=== PATIENT | female | born 2000 | race Caucasian/White ===

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

== ENCOUNTER 2022-08-16 11:36 | Outpatient (CLI) | payer BC, SELFPAY ==
[2022-08-16 12:13] LABS: Hematocrit 37.1 % (37.0-47.0); Hemoglobin 11.6 g/dL (12.0-15.0); Mean Corpuscular HGB Conc 31.3 g/dl (32-36); Mean Corpuscular Hemoglobin 27.2 pg (26-34); Mean Corpuscular Volume 87.1 fl (80-100); Mean Platelet Volume 9.4 fl (7.4-10.4); Platelet Count Result 276 k/mm3 (150-375); Red Blood Count 4.26 M/mm3 (4.2-5.4); Red Cell Distribution Width 15.4 % (11.5-14.5)
[2022-08-16 12:23] LABS: Alanine Aminotransferase 36 U/L (6-35); Albumin Level 4.1 g/dL (3.5-5.1); Alkaline Phosphatase 136 U/L (38-126); Anion Gap 4 mmol/L (8-16); Aspartate Amino Transferase 36 U/L (14-36); Bilirubin,Total 0.4 mg/dL (0.2-1.3); Blood Urea Nitrogen 8 mg/dL (7-17); CRP < 0.5 mg/dL (<1.0); Calcium 8.8 mg/dL (8.4-10.2); Carbon Dioxide 26 mmol/L (22-30); Chloride 107 mmol/L (98-107); Estimated Glomerular Filt Rate > 60; Glucose 87 mg/dL (65-110); Potassium 4.3 mmol/L (3.4-5.0); Sodium 137 mmol/L (137-145)
[2022-08-16 16:26] LABS: Erythrocyte Sedimentation Rate 13 mm/hr (0-20)
== END 2022-08-16 11:37 | disposition home or self-care (01) ==
PROVIDERS: PCP Family Medicine; Visit Provider Nurse Practitioner Family
DX: R10.9 Unspecified abdominal pain (principal); R11.2 Nausea with vomiting, unspecified; R19.7 Diarrhea, unspecified
CPT/HCPCS: 36415; 80053; 85027; 85652; 86140

== ENCOUNTER 2022-09-15 00:23 | Day surgery (SDC) | payer BC, SELFPAY ==
[2022-09-06 14:24] VITALS: BMI 20.1
--- NOTE | 2022-09-13 07:54 | PM.IMHP ---
H&P: HPI History of Present Illness Date/Time: 09/13/22 07:54 Chief Complaint: Pelvic pain refractory to medical therapy and hymeneal tag Narrative: This 22 female 0 be for laparoscopy removal of hymeneal tag. She has had an ultrasound which was unhelpful. There was some free fluid. She has family history of endometriosis. She has tried oral contraceptives in has been unsuccessful with this. In light of her continued pain despite medical therapy she is admitted for diagnostic laparoscopy. She also has a piece of hymen that hangs out the vagina and would like to have that removed she is having discomfort with intercourse risks and benefits of all these procedures were reviewed including not exclusive of , aspiration pneumonia, bleeding, transfusion, perforation injury to bowel, bladder, ureters, or other internal organs with need for open laparotomy. She received the [employer] handout entitled laparoscopy. She had all questions answered. She asked to proceed PMFSH Past Medical History Medical History Abdominal pain Acute pain of both ears Acute tonsillitis Anxiety Asthma Chronic tonsillitis Depression GERD (gastroesophageal reflux disease) Headache Irritable bowel syndrome with diarrhea Nausea and vomiting Pharyngitis Family History Family History Other Diabetes mellitus Family history of arthritis Family history of cardiovascular disease Family history of malignant neoplasm Social History Social History Smoking status: Never smoker Second hand tobacco smoke exposure: Yes ([employer]) Alcohol intake: current Substance use: current Substance use type: marijuana Living arrangements: with family Occupation/Education: occupation Gender identity (if verbalized by the patient): Female Sexual Orientation (if Verbalized by the Patient): Straight or Heterosexual Spiritual care concerns: No Meds Home Medications and Allergies Home Medications Medication Instructions Recorded Confirmed Type No Home Medications 09/06/22 09/06/22 History Allergies Allergy/AdvReac Type Severity Reaction Status Date / Time No Known Allergies Allergy Verified 08/03/22 14:55 Exam Const: General: cooperative, healthy appearing, comfortable, well groomed and average body habitus Orientation/consciousness: oriented to person, oriented to place and oriented to time HENMT: Head: normal to inspection Resp: Effort & Inspection: normal respiratory effort Cardio: Rate: regular rate Rhythm: regular rhythm Heart sounds: S1 normal heart sound present and S2 normal heart sound present GI: Inspection: normal to inspection : External Female Exam: normal external appearance Speculum Exam - Vagina: normal appearance of the vagina Speculum Exam - Cervix: Cervical os closed Bimanual exam- vagina & uterus: uterine size normal Bimanual Exam- Adnexa, other: tender bilaterally Assessment and Plan Assessment and plan (1) Hymenal remnant: Code(s): N89.8 - Other specified noninflammatory disorders of vagina Status: Acute (2) Pelvic pain: Code(s): R10.2 - Pelvic and perineal pain Status: Acute Plan Laparoscopy with partial hymenectomy
[2022-09-15] VITALS (8 sets, daily range): BP systolic 98–111; BP diastolic 60–69; PULSE 62–110; RESP 12–20; TEMP 36.1–36.6; O2SAT 100
--- NOTE | 2022-09-15 07:09 | WPDHPUPDATE1 ---
History and Physical Update Update Date/Time: 09/15/22 07:09 History and Physical has been reviewed, including an updated exam of the patient. There are NO changes in the patient's condition. Risks, benefits, and alternatives have been discussed and questions answered. Patient agrees to proceed with procedure.
--- NOTE | 2022-09-15 13:58 | WPDANESEPPF ---
Anes - Initial Pre Proc Eval Procedure: Operation Date: 09/15/22 15:30 Proposed Procedures p Laparoscopy, Partial Hymenectomy - Kishor Duarte MD Date/Time: 09/15/22 13:58 Surgeon: Kishor Duarte MD Pre Op Diagnosis: pain, excessive hymen tissue Patient Data Age: 22 Gender: F Height: 1.57 m Weight: 50 kg Allergies Allergy/AdvReac Type Severity Reaction Status Date / Time No Known Allergies Allergy Verified 08/03/22 14:55 Home Medications Medication Instructions Recorded Confirmed Type hydrocodone 5 mg-acetaminophen 325 1 tablet PO Q4H PRN pain #20 tabs 09/15/22 Rx mg tablet Patient hx anesthesia problems: none Family hx anesthesia problems: none Results Review: All pre-operative results and documents have been reviewed as part of the pre-operative evaluation. [facility] Past Medical History Medical History Abdominal pain Acute pain of both ears Acute tonsillitis Anxiety Asthma Chronic tonsillitis Depression GERD (gastroesophageal reflux disease) Headache Irritable bowel syndrome with diarrhea Nausea and vomiting Pharyngitis Family History Family History Other Diabetes mellitus Family history of arthritis Family history of cardiovascular disease Family history of malignant neoplasm Social History Social History Smoking status: Never smoker Second hand tobacco smoke exposure: Yes ([employer]) Alcohol intake: current Substance use: current Substance use type: marijuana Living arrangements: with family Occupation/Education: occupation Gender identity (if verbalized by the patient): Female Sexual Orientation (if Verbalized by the Patient): Straight or Heterosexual Spiritual care concerns: No Anes - Eval Final PreProcedure Day of Procedure 09/15/22 13:58 Patient weight: normal Heart: regular rate and rhythm Lungs: decreased breath sounds Airway: Mallampati scale Neurological: alert and oriented Last oral intake: >/= 8 hours ASA classification: III Emergent: no Anesthetic plan: proceed Anesthesia type and monitoring: general ETT and standard monitoring Results Review: All pre-operative results and documents have been reviewed as part of the pre-operative evaluation. Informed Consent: The patient's anesthetic plan and its attendant risks and benefits were discussed with the patient/family/POA. Questions were solicited and answers provided to the satisfaction of the patient/family/POA.
[2022-09-15] MEDS: ACETAMINOPHEN 500 MG TABLET 1000 MG PO (14:06)
[2022-09-15] MEDS: SCOPOLAMINE 1.5 MG PATCH TRANSDERM (14:12)
[2022-09-15] MEDS: LACTATED RINGERS 1,000 ML 30 ML IV CONT (14:16)
[2022-09-15] MEDS: KETOROLAC 15 MG/ML VIAL (*BKC) IV PUSH (14:20)
--- NOTE | 2022-09-15 15:10 | P.OP_ITS ---
Procedure Note - Detailed Date of Procedure 09/15/22 Pre-op Diagnosis pain, excessive hymen tissue Post-op Diagnosis Other (endometriosis) Procedure Performed Laparoscopic destruction of endometriosis / excision of excess hymeneal tissue Surgeon Kishor Duarte MD Anesthesia General Indications a 22-year-old female with severe pelvic pain excess hymeneal tissue Findings abdomen was excessively over abundant. Areas of powder burn and blistered endometriosis along each uterosacral ligament. Normal-appearing ovaries tubes and uterus. [id number] of serosanguineous fluid was seen cul-de-sac. The appendix and gallbladder and liver edge all appeared within normal limits Description of Procedure patient was prepped draped in sterile fashion placed in the dorsal lithotomy position. Under excellent general trach anesthesia weighted speculum placed in posterior fornix vagina. Anterior lip of the cervix grasped with single-tooth tenaculum. The Brock's cannula inserted the cervix and attached to the single- tooth to be used later for uterine manipulation. An infraumbilical incision made the Veress needle passed in the abdomen. Abdomen filled with CO2 gas [id number]. The 5mm trocar advanced under direct visualization assuring no injury with the Optiview. Patient placed in tele Trendelenburg and a suprapubic incision made. The 5mm trocar advanced under direct visualization assuring no. Injury. [id number] of serosanguineous fluid was seen in the cul-de-sac and this was suctioned and removed. Irrigation undertaken until clear. Areas of endometriosis were photo documented and then point cauterized at 35 w per 2nd with monopolar cautery. No other abnormalities were seen. Visualization of the appendix gallbladder and liver edge were undertaken in photo documentation u ndertaken of the lower site removed. The gas removed from the abdomen. The upper site removed. The incisions closed with 4 Monocryl and glue. Attention was turned to the partial hymenectomy. Marked amount of hymeneal tissue was seen extruding through the vagina. Using cautery this was sharply dissected and removed bilaterally and circumferentially. These were then closed with running 3-0 Vicryl from superior to inferior portion. The tissue was sent for pathology. Blood loss for the entire procedure was deemed [id number]. All sponge, needle, instrument counts were correct. Patient went to recovery in satisfactory condition Estimated Blood Loss 5 Drains No Packing No Pathology Yes Complications No immediate complications Condition Stable Disposition PACU
[2022-09-15] MEDS: fentaNYL CITRATE INJ (*CRX) 100 MCG/2 ML VIAL 25 MCG IV PUSH ×5 (15:38→16:33)
[2022-09-15] MEDS: ONDANSETRON INJ 4 MG/2 ML VIAL IV PUSH (16:27)
[2022-09-15] MEDS: oxyCODONE HCL (*CRX) 5 MG TAB IR PO (16:28)
--- NOTE | 2022-09-15 17:21 | SUR.PHASEII ---
PHASE 1 CHARTRING AT 1556, 1626, 1655 ARE FOR PHASE 2.
== END 2022-09-15 17:05 | disposition home or self-care (01) ==
PROVIDERS: PCP Family Medicine; Visit Provider Obstetrics & Gynecology
PROC: (CPT 49320; principal; 2022-09-15 15:30)
DX: Q52.4 Other congenital malformations of vagina (principal); N80.3C3 Endometriosis of bilateral uterosacral ligament(s), unspecified depth; F12.90 Cannabis use, unspecified, uncomplicated
CPT/HCPCS: 58662; 56700; 36415; 86850; 86900; 86901; 88304; A9270; J1100; J1885; J2250; J2405; J2704; J3010; J7030; J7120

== ENCOUNTER 2022-10-06 10:53 | Outpatient (CLI) | payer BC, SELFPAY ==
[2022-10-14 19:51] LABS: Calprotectin, Stool 89 mcg/g
== END 2022-10-06 10:54 | disposition home or self-care (01) ==
PROVIDERS: PCP Family Medicine; Visit Provider Nurse Practitioner Family
DX: R10.9 Unspecified abdominal pain (principal); R11.2 Nausea with vomiting, unspecified; R19.7 Diarrhea, unspecified
CPT/HCPCS: 83993

== ENCOUNTER 2022-10-23 11:05 | Emergency (ER) | payer BC, SELFPAY ==
--- NOTE | ~2022-10-23 | XR_ITS ---
EXAMINATION: XR chest 2V DATE: 10/23/2022 12:42 INDICATION: Productive cough. Shortness of breath. TECHNIQUE: Frontal and lateral views of the chest were obtained. COMPARISON: Chest 2 views 07/19/2004 FINDINGS: The chest demonstrates clear lungs without pneumonia, pleural effusion, or pneumothorax. Th e heart size is normal. IMPRESSION: 1. No acute cardiopulmonary disease. Reviewed, dictated and finalized at location A.
[2022-10-23 11:14] VITALS: BP 124/77; PULSE 81; RESP 20; TEMP 36.8; O2SAT 98
[2022-10-23 11:42] VITALS: O2SAT 100
[2022-10-23 12:45] VITALS: O2SAT 98
[2022-10-23 13:04] LABS: Basophils Absolute Auto 0.1 K/mm3 (0.0-0.1); Basophils Percent Auto 0.7 % (0.2-1.2); Eosinophils Absolute Auto 0.2 K/mm3 (0-0.3); Eosinophils Percent Auto 2.8 % (0-4.4); Hematocrit 41.6 % (37.0-47.0); Hemoglobin 13.4 g/dL (12.0-15.0); Immature Granulocyte Absolute 0.02 K/mm3 (0.00-0.031); Immature Granulocyte Percent A 0.3 % (0-0.5); Lymphocytes Absolute Auto 1.34 K/mm3 (0.9-3.2); Lymphocytes Percent Auto 18.8 % (18.3-44.2); Mean Corpuscular HGB Conc 32.2 g/dl (32-36); Mean Corpuscular Hemoglobin 26.7 pg (26-34); Mean Corpuscular Volume 82.9 fl (80-100); Mean Platelet Volume 9.5 fl (7.4-10.4); Monocytes Absolute Auto 0.6 K/mm3 (0.1-0.6); Monocytes Percent Auto 8.6 % (2.6-8.5); Neutrophils Absolute Auto 4.9 K/mm3 (1.3-6.7); Neutrophils Percent Auto 68.8 % (45.5-73.1); Platelet Count Result 322 k/mm3 (150-375); Red Blood Count 5.02 M/mm3 (4.2-5.4); Red Cell Distribution Width 14.6 % (11.5-14.5); White Blood Count 7.1 K/mm3 (4.5-10.0)
[2022-10-23 13:18] LABS: Anion Gap 11 mmol/L (8-16); Blood Urea Nitrogen 9 mg/dL (7-17); Calcium 9.7 mg/dL (8.4-10.2); Carbon Dioxide 24 mmol/L (22-30); Chloride 104 mmol/L (98-107); Estimated CRCL calculation 100 ml/min; Estimated Glomerular Filt Rate > 60; Glucose 104 mg/dL (65-110); Potassium 3.6 mmol/L (3.4-5.0); Sodium 139 mmol/L (137-145)
[2022-10-23 13:40] LABS: Appearance Urine Cloudy (Clear); Bacteria Urine Rare /hpf; Bilirubin Urine Negative (Negative); Blood Urine Trace (Negative); Color Urine Yellow (Yellow); Glucose Urine UA Negative (Negative); Ketones Urine Negative (Negative); Leukocyte Esterase Ur Trace LEU/UL (Negative); Need Manual Microscopic Reviewed; Nitrate Urine Negative (Negative); Non Pathogenic Casts 0-2; Protein Urine Trace mg/dL (Negative); Squamous Epithelial Cell Urine Moderate /hpf (Few); Urobilinogen Urine 0.2 mg/dL (<2.0)
--- NOTE | 2022-10-23 13:50 | ED.SOB ---
HPI - SOB/Dyspnea General Chief Complaint: Shortness of Breath/Dyspnea Stated Complaint: SOB Time Seen by Provider: 10/23/22 12:03 Source: patient Mode of arrival: ambulatory Limitations: no limitations History of Present Illness HPI Narrative: 22-year-old with a history of anxiety, exercise-induced asthma here with complaints of shortness of breath for past few days. She denies any fever or chills she states the cough at times is productive mostly mucoid in nature. She denies any chest pain MD elicited complaint: shortness of breath and cough Pertinent past history: asthma Timing: constant Severity: moderate Exacerbating factors: nothing Relieving factors: nothing Known history of: asthma Associated symptoms: denies other symptoms Related Data Home Medications Medication Instructions Recorded Confirmed etonogestrel 68 mg subdermal 1 implant subdermal ONCE 10/06/22 10/06/22 implant (Nexplanon) Allergies Allergy/AdvReac Type Severity Reaction Status Date / Time No Known Allergies Allergy Verified 10/23/22 11:43 Review of Systems Review of Systems: All systems reviewed & are unremarkable except as noted in HPI and below Constitutional: Constitutional: Reports no additional constitutional complaints Eyes: Eyes: Reports no additional eye complaints ENT: Reports system reviewed and no additional complaints, except as documented Cardiovascular: Cardiovascular: Reports no additional cardiovascular complaints Respiratory: Respiratory: Reports as per HPI Musculoskeletal: Musculoskeletal: Reports no additional musculoskeletal complaints Neurologic: Reports system reviewed and no additional complaints, except as documented Psychiatric: Psychiatric: Reports no additional psychiatric complaints Endocrine: Endocrine: Reports no additional endocrine complaints PMFSH Past Medical History Medical History Abdominal pain Acute pain of both ears Acute tonsillitis Anxiety Asthma Chronic tonsillitis Depression GERD (gastroesophageal reflux disease) Headache Irritable bowel syndrome with diarrhea Nausea and vomiting Pharyngitis Family History Family History Other Diabetes mellitus Family history of arthritis Family history of cardiovascular disease Family history of malignant neoplasm Social History Social History Smoking status: Never smoker Second hand tobacco smoke exposure: Yes ([employer]) Alcohol intake: current Substance use: current Substance use type: marijuana Living arrangements: with family Occupation/Education: occupation Gender identity (if verbalized by the patient): Female Sexual Orientation (if Verbalized by the Patient): Straight or Heterosexual Spiritual care concerns: No Exam Narrative: GENERAL: Well-appearing, well-nourished, and in no acute distress, anxious HEAD: Normocephalic, atraumatic. EYES: PERRLA and EOMI NECK: Supple. CHEST: Clear to auscultation. No respiratory distress. HEART: Regular rate and rhythm. No murmur heard. Normal peripheral pulses. ABDOMEN: Soft, nontender, nondistended, normal active bowel sounds. EXTREMITIES: Normal range of motion. No edema. SKIN: Warm, dry, no rash. NEURO: No focal deficits. Alert and oriented x3. PSYCH: Normal mood and affect. Course Course Emergency Course: Notified patient about her lab work, chest x-ray findings recommended to take steroids as prescribed. Vital Signs Vital signs: Vital Signs Temperature 36.8 C 10/23/22 11:14 Pulse Rate 81 10/23/22 11:14 Respiratory Rate 20 10/23/22 11:14 Blood Pressure 124/77 10/23/22 11:14 Pulse Oximetry 98 10/23/22 11:14 Oxygen Delivery Room Air 10/23/22 11:14 Temperature 36.8 C 10/23/22 11:14 Pulse Rate 78 10/23/22 14:03 Respiratory Rate 18 10/23/22 14:03 Bloo
[2022-10-23 14:03] VITALS: BP 116/74; PULSE 78; RESP 18; O2SAT 98
[2022-10-23 14:42] LABS: Add Urine Microscopic? YES
== END 2022-10-23 14:05 | disposition home or self-care (01) ==
PROVIDERS: Emergency Provider Family Medicine; PCP Family Medicine
DX: F12.90 Cannabis use, unspecified, uncomplicated (principal); J40 Bronchitis, not specified as acute or chronic
CPT/HCPCS: 36415; 71046; 80048; 81001; 81025; 85025; 87086; 87088; 99283

== ENCOUNTER 2022-12-01 14:07 | Outpatient (CLI) | payer BC, SELFPAY ==
[2022-12-01 14:58] LABS: D Dimer 0.38 ug/mL (<0.48)
== END 2022-12-01 14:08 | disposition home or self-care (01) ==
PROVIDERS: PCP Family Medicine; Visit Provider Physician Assistant
DX: R07.9 Chest pain, unspecified (principal); R06.02 Shortness of breath
CPT/HCPCS: 36415; 85380

== ENCOUNTER 2022-12-20 09:34 | Outpatient (CLI) | payer BC, SELFPAY ==
[2022-12-20 10:42] LABS: Beta HCG Quantitative < 2.39 mIU/ML
== END 2022-12-20 09:35 | disposition home or self-care (01) ==
PROVIDERS: PCP Family Medicine; Visit Provider Physician Assistant
DX: Z32.00 Encounter for pregnancy test, result unknown (principal)
CPT/HCPCS: 36415; 84702

== ENCOUNTER 2023-01-30 16:08 | Emergency (ER) | payer BC, SELFPAY ==
[2023-01-30 16:21] VITALS: BP 80/69; PULSE 96; RESP 16; TEMP 36.9; O2SAT 100
--- NOTE | 2023-01-30 16:23 | ED.GENADULT ---
HPI - General Adult General Chief complaint: Unspecified Stated complaint: n/v, cough, piercing may be infected Time Seen by Provider: 01/30/23 16:23 Source: patient Mode of arrival: ambulatory Limitations: no limitations History of Present Illness HPI narrative: Patient is a 22-year-old female that presents with multiple complaints. Patient for several weeks. Has been diagnosed with bronchitis in the past month and had Medrol Dosepak called into pharmacy today. Patient has not started. Patient also nausea and vomiting. Patient states and may be related to increased anxiety over not wanting to hospital. Patient admits to having PTSD, borderline personality disorder, anxiety and depression but is not currently taking any medication due to having workup for autism. Patient also reports history of GI disorders acid reflux and IBS. Patient also has mild piercing upper lip frenulum that has been pulled and is now very tender and red. Denies any bitter taste in mouth. Patient also states she may have UTI he may have concern for . States she took the test last month and was negative but it has been another month since staff menstrual cycle. Patient is very anxious and tearful. Related Data Allergies Allergy/AdvReac Type Severity Reaction Status Date / Time No Known Allergies Allergy Verified 01/30/23 16:43 Review of Systems Review of Systems: All systems reviewed & are unremarkable except as noted in HPI and below Constitutional: Constitutional: Denies body ache(s), Denies chills, Denies fatigue, Denies fever(s), Denies headache(s), Denies malaise and Denies weakness Eyes: Eyes: Denies blurry vision, Denies irritation and Denies loss of vision ENT: Denies otalgia, Denies headache(s), Denies nasal discharge, Denies sinus pain and Denies sore throat Cardiovascular: Cardiovascular: Denies chest pain, Denies irregular heart rhythm and Denies dyspnea Respiratory: Respiratory: Denies dyspnea Gastrointestinal: Gastrointestinal: Denies abdominal pain, Denies melena, Denies hematochezia, Denies diarrhea, Denies nausea and Denies vomiting Musculoskeletal: Musculoskeletal: Denies back pain, Denies myalgias and Denies arthralgias Integumentary/Breasts: Skin/Breast: Denies pruritus and Denies rash Neurologic: Denies headache(s), Denies loss of vision and Denies weakness Psychiatric: Psychiatric: Reports no additional psychiatric complaints Endocrine: Endocrine: Denies fatigue PMFSH Past Medical History Medical History Abdominal pain Acute pain of both ears Acute tonsillitis Anxiety Asthma Chronic tonsillitis Depression GERD (gastroesophageal reflux disease) Headache Irritable bowel syndrome with diarrhea Nausea and vomiting Pharyngitis Family History Family History Other Diabetes mellitus Family history of arthritis Family history of cardiovascular disease Family history of malignant neoplasm Social History Social History Smoking status: Never smoker Second hand tobacco smoke exposure: Yes ([employer]) Alcohol intake: current Substance use: current Substance use type: marijuana Living arrangements: with family Occupation/Education: occupation Gender identity (if verbalized by the patient): Female Sexual Orientation (if Verbalized by the Patient): Straight or Heterosexual Spiritual care concerns: No Comments At time of signature, agree with nursing past medical, surgical, social and family history. There is no relevant family history pertinent to the presenting complaint. Exam Const: General: cooperative, healthy appearing, comfortable, no acute distress and well nourished Nutritional Appearance: well nourished Orientation/consciousness: patient oriented x3 Limitations: no limitations HENMT: Head: normal to inspectio
[2023-01-30 17:25] VITALS: BP 108/87
== END 2023-01-30 17:26 | disposition home or self-care (01) ==
PROVIDERS: Emergency Provider Nurse Practitioner Family; PCP Family Medicine
DX: O21.9 Vomiting of pregnancy, unspecified (principal); O99.519 Diseases of the respiratory system complicating pregnancy, unspecified trimester; J45.909 Unspecified asthma, uncomplicated; O99.619 Diseases of the digestive system complicating pregnancy, unspecified trimester; K21.9 Gastro-esophageal reflux disease without esophagitis; O99.320 Drug use complicating pregnancy, unspecified trimester; F12.90 Cannabis use, unspecified, uncomplicated; Z3A.00 Weeks of gestation of pregnancy not specified
CPT/HCPCS: 81003; 81025; 99213; G0463

== ENCOUNTER 2023-01-31 14:13 | Outpatient (CLI) | payer BC, SELFPAY | END 2023-01-31 14:14 | disposition home or self-care (01) | LOC: ANHLAB 14:14 | PROVIDERS: PCP Family Medicine; Visit Provider Family Medicine | DX: N91.2 Amenorrhea, unspecified (principal) | CPT/HCPCS: 36415; 84702 ==

== ENCOUNTER 2023-02-12 11:40 | Outpatient (CLI) | payer BC, SELFPAY ==
[2023-02-12 12:37] LABS: Basophils Percent Auto 0.3 % (0.2-1.2); Eosinophils Percent Auto 0.3 % (0-4.4); Hematocrit 37.8 % (37.0-47.0); Hemoglobin 12.1 g/dL (12.0-15.0); Immature Granulocyte Absolute 0.02 K/mm3 (0.00-0.031); Immature Granulocyte Percent A 0.3 % (0-0.5); Lymphocytes Absolute Auto 1.47 K/mm3 (0.9-3.2); Lymphocytes Percent Auto 19.5 % (18.3-44.2); Mean Corpuscular Hemoglobin 27.6 pg (26-34); Mean Corpuscular Volume 86.3 fl (80-100); Mean Platelet Volume 10.5 fl (7.4-10.4); Monocytes Absolute Auto 0.6 K/mm3 (0.1-0.6); Monocytes Percent Auto 7.6 % (2.6-8.5); Neutrophils Absolute Auto 5.4 K/mm3 (1.3-6.7); Platelet Count Result 279 k/mm3 (150-375); Red Blood Count 4.38 M/mm3 (4.2-5.4); Red Cell Distribution Width 16.6 % (11.5-14.5); White Blood Count 7.5 K/mm3 (4.5-10.0)
[2023-02-12 13:22] LABS: Hepatitis B Surface Antigen Negative (Negative); Rubella IgG Antibody 56.2 IU/ML
[2023-02-12 13:56] LABS: HIV 1/2 Ab P24 Ag Result Negative (Negative)
[2023-02-12 14:19] LABS: Rapid Plasma Reagin Non-Reactive (NonReactive)
[2023-02-16 09:13] LABS: CMV IgG Antibody <0.60 U/mL (<0.60)
[2023-02-21 02:28] LABS: CF Result NEGATIVE (NEGATIVE); Ethnicity NG
[2023-02-23 01:10] LABS: SMA 2.0 RISK VARIANT NOT DETECTED
[2023-02-23 14:59] LABS: SMA Results Received Yes
== END 2023-02-12 11:41 | disposition home or self-care (01) ==
PROVIDERS: PCP Family Medicine; Visit Provider Obstetrics & Gynecology
DX: N94.89 Other specified conditions associated with female genital organs and menstrual cycle (principal)
CPT/HCPCS: 36415; 81220; 81329; 84702; 85025; 86592; 86644; 86703; 86747; 86762; 86787; 86900; 86901; 87086; 87340; G0432

== ENCOUNTER 2023-02-21 17:47 | Emergency (ER) | payer BC, SELFPAY ==
[2023-02-21] VITALS (12 sets, daily range): BP systolic 92–120; BP diastolic 48–79; PULSE 71–88; RESP 14–16; TEMP 36.6; O2SAT 98–100
[2023-02-21] MEDS: METOCLOPRAMIDE HCL INJ 10 MG/2 ML VIAL IV PUSH (19:31)
[2023-02-21 19:32] LABS: Basophils Percent Auto 0.1 % (0.2-1.2); Hematocrit 36.6 % (37.0-47.0); Hemoglobin 12.3 g/dL (12.0-15.0); Immature Granulocyte Percent A 0.7 % (0-0.5); Lymphocytes Absolute Auto 1.14 K/mm3 (0.9-3.2); Lymphocytes Percent Auto 7.7 % (18.3-44.2); Mean Corpuscular HGB Conc 33.6 g/dl (32-36); Mean Corpuscular Hemoglobin 28.1 pg (26-34); Mean Corpuscular Volume 83.8 fl (80-100); Mean Platelet Volume 9.9 fl (7.4-10.4); Monocytes Absolute Auto 0.7 K/mm3 (0.1-0.6); Monocytes Percent Auto 4.6 % (2.6-8.5); Neutrophils Absolute Auto 12.9 K/mm3 (1.3-6.7); Neutrophils Percent Auto 86.9 % (45.5-73.1); Platelet Count Result 326 k/mm3 (150-375); Red Blood Count 4.37 M/mm3 (4.2-5.4); Red Cell Distribution Width 16.2 % (11.5-14.5); White Blood Count 14.9 K/mm3 (4.5-10.0)
[2023-02-21] MEDS: diphenhydrAMINE HCl INJ 50 MG/ML VIAL 25 MG IV PUSH (19:32)
[2023-02-21] MEDS: LACTATED RINGERS 1,000 ML 999 ML IV CONT ×2 (19:32→22:04)
[2023-02-21 19:41] LABS: Alanine Aminotransferase 16 U/L (6-35); Albumin Level 4.9 g/dL (3.5-5.1); Alkaline Phosphatase 69 U/L (38-126); Anion Gap 16 mmol/L (8-16); Aspartate Amino Transferase 25 U/L (14-36); Bilirubin,Total 0.6 mg/dL (0.2-1.3); Blood Urea Nitrogen 12 mg/dL (7-17); Calcium 9.6 mg/dL (8.4-10.2); Carbon Dioxide 17 mmol/L (22-30); Chloride 102 mmol/L (98-107); Estimated CRCL calculation 118 ml/min; Estimated Glomerular Filt Rate > 60; Glucose 97 mg/dL (65-110); Lipase 69 U/L (23-300); Potassium 3.5 mmol/L (3.4-5.0); Sodium 135 mmol/L (137-145)
--- NOTE | 2023-02-21 19:57 | ED.NAVMDI ---
HPI - Nausea/Vomiting/Diarrhea General Chief complaint: Nausea/Vomiting/Diarrhea Stated complaint: n/v Time Seen by Provider: 02/21/23 19:02 History of Present Illness HPI Narrative: Patient who is 10 weeks confirmed IUP on ultrasound nausea and vomiting presents here with, she states she has not been able to keep anything down for the last 24 hours, she has been struggling with this throughout her whole and is already on Zofran and Diclegis without improvement. Related Data Allergies Allergy/AdvReac Type Severity Reaction Status Date / Time No Known Allergies Allergy Verified 02/06/23 09:53 Review of Systems Review of Systems: CONST: No fever. HEENT: No sore throat C/V: No chest pain RESP: No cough GI: Reports nausea, vomiting : No dysuria. M/S: No joint pain. SKIN: No rash. NEURO: [No headache or focal numbness or weakness] PSYCH: [No depression] [facility] Past Medical History Medical History (Updated 02/21/23 @ 22:37 by Cyn Castro MD) Abdominal pain Acute pain of both ears Acute tonsillitis Anxiety Asthma Borderline personality disorder Chronic tonsillitis Depression Encounter for screening colonoscopy for [id number] patient GERD (gastroesophageal reflux disease) Headache Irritable bowel syndrome with diarrhea Nausea and vomiting Normal endoscopy Pharyngitis PTSD (post-traumatic stress disorder) Surgical History Surgical History H/O laparoscopy Family History Family History Other Diabetes mellitus Family history of arthritis Family history of cardiovascular disease Family history of malignant neoplasm Social History Social History (Updated 02/06/23 @ 09:58 by Irma Rubio MA) Smoking status: Never smoker Second hand tobacco smoke exposure: Yes ([employer]ILY [employer]) Alcohol intake: never Substance use: current Substance use type: marijuana Lack of Transportation: No Lack of Food: Never True Current Housing: I Have Housing Concerned About Future Housing: No Difficulty Paying Gas/Electric Bills: No Difficulty Paying for Meds: No Currently Unemployed: No Education: High School Diploma/GED Living arrangements: with family Occupation/Education: occupation 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 EYES: EOMI, conjunctiva normal ENT: Hearing grossly intact LUNGS: Nonlabored breathing. HEART: [Regular rate and rhythm] ABD: [Soft], no focal tenderness EXT: Normal range of motion SKIN: [No rashes or lesions.] NEURO: [Alert and oriented x 3. No gross focal sensory or strength deficits.] PSYCH: Normal affect Course Vital Signs Vital signs: Vital Signs Temperature 97.9 F 02/21/23 17:47 Pulse Rate 71 02/21/23 17:47 Respiratory Rate 16 02/21/23 17:47 Blood Pressure 112/57 L 02/21/23 17:47 Pulse Oximetry 100 02/21/23 17:47 Temperature 97.9 F 02/21/23 17:47 Pulse Rate 74 02/21/23 21:02 Respiratory Rate 14 02/21/23 21:02 Blood Pressure 103/66 02/21/23 22:02 Pulse Oximetry 99 02/21/23 22:02 MDM - Nausea/Vomiting/Diarrhea MDM Narrative Medical decision making narrative: 22-year-old female at 10 weeks presenting with nausea and vomiting, she states she has not been able to keep anything down for 24 hours. She has tried Zofran, Diclegis, none of which are working. IV established, labs obtained, fluids and antiemetics administered. On reevaluation, she states she is feeling much better, nausea has improved. Lab
[2023-02-21 22:26] LABS: Appearance Urine Cloudy (Clear); Bacteria Urine Rare /hpf; Bilirubin Urine Negative (Negative); Blood Urine Negative (Negative); Color Urine Yellow (Yellow); Glucose Urine UA Negative (Negative); Hyaline Casts Urine Present /lpf; Ketones Urine 4+ mg/dL (Negative); Leukocyte Esterase Ur Trace LEU/UL (Negative); Nitrate Urine Negative (Negative); Non Pathogenic Casts 0-2; Protein Urine 1+ mg/dL (Negative); Specific Grav Ur 1.033 (1.001-1.035); Squamous Epithelial Cell Urine Many /hpf (Few); pH Urine 6.5 (5.0-9.0)
[2023-02-21 22:27] LABS: Add Urine Microscopic? YES
== END 2023-02-21 22:48 | disposition home or self-care (01) ==
PROVIDERS: Emergency Provider Emergency Medicine; PCP Family Medicine
DX: O21.9 Vomiting of pregnancy, unspecified (principal); O26.891 Other specified pregnancy related conditions, first trimester; R82.71 Bacteriuria; O99.511 Diseases of the respiratory system complicating pregnancy, first trimester; J45.909 Unspecified asthma, uncomplicated; O99.611 Diseases of the digestive system complicating pregnancy, first trimester; K21.9 Gastro-esophageal reflux disease without esophagitis; K58.0 Irritable bowel syndrome with diarrhea; Z77.22 Contact with and (suspected) exposure to environmental tobacco smoke (acute) (chronic); Z3A.10 10 weeks gestation of pregnancy
CPT/HCPCS: 36415; 80053; 81001; 83690; 85025; 87086; 87088; 96361; 96374; 96375; 99284; J1200; J2765; J7120

== ENCOUNTER 2023-04-07 11:33 | Outpatient (CLI) | payer BC, SELFPAY | END 2023-04-07 11:34 | disposition home or self-care (01) | LOC: ANHLAB 11:34 | PROVIDERS: PCP Family Medicine; Visit Provider Obstetrics & Gynecology | DX: K58.0 Irritable bowel syndrome with diarrhea (principal); R19.7 Diarrhea, unspecified | CPT/HCPCS: 87177; 87209 ==

== ENCOUNTER 2023-04-23 15:09 | Outpatient (CLI) | payer BC, SELFPAY | END 2023-04-23 15:10 | disposition home or self-care (01) | PROVIDERS: PCP Family Medicine; Visit Provider Obstetrics & Gynecology | DX: R30.9 Painful micturition, unspecified (principal) | CPT/HCPCS: 87086 ==

== ENCOUNTER 2023-06-05 15:11 | Outpatient (CLI) | payer BC, SELFPAY ==
--- NOTE | 2023-06-05 15:21 | ECG_ITS ---
Measurements Intervals Hanna Rate: 75 P: 24 MI: 119 QRS: 72 QRSD: 76 T: 12 QT: 376 QTc: 420 Interpretive Statements SINUS RHYTHM WITH SHORT MI INTERVAL BORDERLINE ST-T WAVE ABNORMALITY- INFERIOR LEADS BASELINE WANDER- I, II, V3 BORDERLINE ECG NO PREVIOUS ECG AVAILABLE FOR COMPARISON Electronically Signed On 06-05-2023 16:50:33 PPA TEACHER by Inder Ramos D.O.
== END 2023-06-05 15:12 | disposition home or self-care (01) ==
PROVIDERS: PCP Family Medicine; Visit Provider Obstetrics & Gynecology
DX: R00.0 Tachycardia, unspecified (principal); R94.31 Abnormal electrocardiogram [ECG] [EKG]
CPT/HCPCS: 93005

== ENCOUNTER 2023-07-03 15:15 | Outpatient (CLI) | payer BC, SELFPAY ==
[2023-07-03 17:06] LABS: Hematocrit 34.1 % (37.0-47.0); Mean Corpuscular HGB Conc 32.3 g/dl (32-36); Mean Corpuscular Hemoglobin 29.2 pg (26-34); Mean Corpuscular Volume 90.5 fl (80-100); Mean Platelet Volume 9.8 fl (7.4-10.4); Platelet Count Result 330 k/mm3 (150-375); Red Blood Count 3.77 M/mm3 (4.2-5.4); Red Cell Distribution Width 14.4 % (11.5-14.5); White Blood Count 11.5 K/mm3 (4.5-10.0)
[2023-07-03 17:21] LABS: Glucose 1 Hour PP 50gm Dose 112 mg/dL
[2023-07-03 18:06] LABS: HIV 1/2 Ab P24 Ag Result Negative (Negative)
== END 2023-07-03 15:16 | disposition home or self-care (01) ==
LOC: ANHLAB 15:16
PROVIDERS: PCP Family Medicine; Visit Provider Student in an Organized Health Care Education/Training Program
DX: Z34.90 Encounter for supervision of normal pregnancy, unspecified, unspecified trimester (principal); Z3A.00 Weeks of gestation of pregnancy not specified
CPT/HCPCS: 36415; 82947; 85027; 86703; G0432

== ENCOUNTER 2023-08-03 00:44 | Day surgery (SDC) | payer BC, MEDICAID, SELFPAY ==
[2023-08-02 11:41] VITALS: BMI 23.4
--- NOTE | 2023-08-02 11:48 | PC.NURSE ---
Report to the Outpatient Waiting Room, entrance under the green pavilion located off [facility], at time 1300 on date 08/03/23. Planned Procedure Time: 1500. Time changes happen often and if your time is changed the preop area will call you the afternoon before. - You and your visitor will be asked to self-screen and do not enter if you have any COVID symptoms. - A mask is optional within the hospital at this time. Patients may have clear liquids (water, carbonated beverages, clear teas, apple juice) until 3 hours prior to surgery with a maximum of 20 ounces. - No food from midnight until time of surgery Take the following medications with a SIP of water the morning of surgery: NONE DO NOT STOP ANY OF YOUR OTHER PRESCRIPTION MEDICATIONS PRIOR TO SURGERY ?EXCEPT THE FOLLOWING Medications to discontinue per physician: N/A Date to take last dose: N/A Please no make-up, nail khmer, hairspray, perfume, deodorant, or body powder the day of surgery. No jewelry (including any body piercings) or valuables the day of surgery, leave them at home. Please take a shower or bath the night before, or the morning of, surgery with an antibacterial soap. Wear comfortable, loose fitting clothing. - Jewelry must be removed prior to entering the operating room. Rings and piercings that are not removed may be cut off. - The hospital will not accept responsibility for valuables. - Please leave all valuables, including medications, at home the day of surgery. If you are going home after surgery, a licensed backhaul driver must drive you home. - NO public transportation without another adult if you receive anesthesia. - We recommend that an adult stay with you for 24 hours following discharge. - We also recommend that you do not drive, make important decision, drink alcoholic beverages, or take any drugs that were not prescribed by your health care provider for at least 24 hours after your discharge time. Follow any additional instructions given to you from your surgeon. If you or anyone in your household have experienced Covid symptoms in the past week, please notify your surgeon or the nurse liaison at the phone number below for possible testing. Telephone instructions given to PT - GOLDEN KHOURY and asked if any additional questions and then verbalized understanding. Patient advised to call surgeon office or pre surgery nurse liaison [phone] if any additional questions.
[2023-08-03] VITALS (15 sets, daily range): BP systolic 68–104; BP diastolic 46–71; PULSE 80–143; RESP 16–20; TEMP 36.3–36.8; O2SAT 97–100
--- NOTE | 2023-08-03 13:30 | WPDANESEPPF ---
Anes - Initial Pre Proc Eval Procedure: Operation Date: 08/03/23 15:00 Proposed Procedures p Rectal Exam Under Anesthesia, Excision Thrombosed External Hemorrhoid - Parmjit Toussaint DO Date/Time: 08/03/23 13:30 Surgeon: Parmjit Toussaint DO Pre Op Diagnosis: thrombosed external hemorrhoid, 33 weeks preg Patient Data Age: 23 Gender: F Height: 1.57 m Weight: 57.8 kg Allergies Allergy/AdvReac Type Severity Reaction Status Date / Time cephalexin AdvReac Severe Vomiting Verified 08/03/23 13:12 Home Medications Medication Instructions Recorded Confirmed Type vits no.126-ferrous fum 1 tablet PO HS 03/05/23 08/02/23 History 28 mg iron-folic acid 800 mcg tablet (Classic ) Patient hx anesthesia problems: none Family hx anesthesia problems: none Results Review: All pre-operative results and documents have been reviewed as part of the pre-operative evaluation. [facility] Past Medical History Medical History Abdominal pain Acute pain of both ears Acute tonsillitis Anxiety Asthma Borderline personality disorder Chronic tonsillitis Depression Encounter for screening colonoscopy for [id number] patient GERD (gastroesophageal reflux disease) Headache Irritable bowel syndrome with diarrhea Nausea and vomiting Normal endoscopy Pharyngitis PTSD (post-traumatic stress disorder) Vaginal discharge Surgical History Surgical History H/O laparoscopy Family History Family History Other Diabetes mellitus Family history of arthritis Family history of cardiovascular disease Family history of malignant neoplasm Social History Social History Smoking status: Never smoker Second hand tobacco smoke exposure: Yes ([employer]) Alcohol intake: never Substance use: current Substance use type: marijuana Lack of Transportation: No Lack of Food: Never True Current Housing: I Have Housing Concerned About Future Housing: No Difficulty Paying Gas/Electric Bills: No Difficulty Paying for Meds: No Currently Unemployed: No Education: High School Diploma/GED Living arrangements: with family Occupation/Education: occupation 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 Gender identity (if verbalized by the patient): Female Sexual Orientation (if Verbalized by the Patient): Straight or Heterosexual Spiritual care concerns: No Anes - Eval Final PreProcedure Day of Procedure 08/03/23 13:30 Patient weight: obese Heart: regular rate and rhythm Lungs: clear to auscultation and normal air movement Airway: Mallampati scale class II Neurological: alert and oriented Last oral intake: >/= 8 hours ASA classification: II Emergent: no Anesthetic plan: proceed Anesthesia type and monitoring: regional spinal and standard monitoring Results Review: All pre-operative results and documents have been reviewed as part of the pre-operative evaluation. Informed Consent: The patient's anesthetic plan and its attendant risks and benefits were discussed with the patient/family/POA. Questions were solicited and answers provided to the satisfaction of the patient/family/POA.
[2023-08-03] MEDS: ACETAMINOPHEN 500 MG TABLET 1000 MG PO (13:33)
[2023-08-03] MEDS: LACTATED RINGERS 1,000 ML 30 ML IV CONT ×2 (13:40→15:56)
[2023-08-03] MEDS: KETOROLAC 15 MG/ML VIAL (*BKC) IV PUSH (13:59)
--- NOTE | 2023-08-03 14:11 | WPDHPUPDATE1 ---
History and Physical Update Update Date/Time: 08/03/23 14:11 History and Physical has been reviewed, including an updated exam of the patient. There are NO changes in the patient's condition. Risks, benefits, and alternatives have been discussed and questions answered. Patient agrees to proceed with procedure.
--- NOTE | 2023-08-03 14:30 | PC.NURSE ---
HEART TONES PER DOPPLER 140-150.
[2023-08-03] MEDS: ceFAZolin 2 GM/D5W 50 ML 2 GM/50 ML BAG IVPB (14:58)
[2023-08-03] MEDS: BUPivacaine HCL 0.5% PF 30 ML VIAL INFILTRATE (15:17)
--- NOTE | 2023-08-03 15:33 | W.PM.PROC2 ---
Procedure Note - Detailed Date of Procedure 08/03/23 Pre-op Diagnosis thrombosed external hemorrhoid, 33 weeks preg Post-op Diagnosis Same (Left posterior thrombosed external hemorrhoid) Procedure Performed Rectal exam under anesthesia, excision of thrombosed external hemorrhoid Surgeon Parmjit Toussaint, DO Anesthesia Local (0.5% bupivacaine with epinephrine) and Spinal Indications This is a 23-year-old woman who presented with worsening rectal pain and swelling over the past week. She has been experiencing difficulty sitting and notices a lump that is painful to touch. She was found to have a thrombosed external hemorrhoid in the left perianal region. She is 33 weeks . She has been dealing with constipation and occasional loose stools during the latter part of this . Discussions were made with the patient about treatment options and decision was made to proceed with rectal exam under anesthesia with excision of thrombosed external hemorrhoid. Findings Rectal exam under anesthesia was performed. The patient was found to have a thrombosed external hemorrhoid in the left posterior location. There was visible clot and a superficial ulcer developing. The patient had some engorged hemorrhoid tissue along the right side as well but there did not appear to be any evidence of thrombosis. The left posterior thrombosed external hemorrhoid was excised and sent to the lab for pathology. Description of Procedure Procedure as well as risks, benefits, and alternatives were discussed with the patient. Written consent was obtained and placed in chart prior to procedure. Spinal anesthetic was administered by the anesthesia department. Patient was brought back to surgical suite. She was placed supine on the operating table. Her legs were placed in dorsal lithotomy position and a bump was placed under her right hip. Her perirectal region was prepped and draped in sterile fashion using Betadine prep. Digital rectal exam was initially performed. 0.5% bupivacaine with epinephrine was then infiltrated locally around the perianal skin. The base of the hemorrhoid was also infiltrated with local anesthetic. An elliptical incision was then made with a 15 blade scalpel to encompass the entire thrombosed external hemorrhoid in the left posterior location. The thrombosed hemorrhoid was completely excised with a 15 blade scalpel. The wound bed was then inspected. Hemostasis was achieved with electrocautery. No other abnormalities were noted. Xeroform gauze was then applied followed by 4 x 4 gauze, ABD pad, and mesh underwear. The patient was then transferred to recovery. Estimated Blood Loss 10 Pathology Yes (Left posterior thrombosed external hemorrhoid) Complications No immediate complications Condition Stable Disposition Same day [facility] Billing Surgery - Charge Forward: Surgery Billing
[2023-08-03] MEDS: PHENYLEPHRINE 1,000 MCG/10 ML SYRINGE 100 MCG IV PUSH ×3 (15:40→15:57)
--- NOTE | 2023-08-03 15:45 | PC.NURSE ---
heart tones per Doppler in recovery room. Noted to be 150-165. Pt being cared for by PACU staff.
== END 2023-08-03 18:40 | disposition home or self-care (01) ==
PROVIDERS: PCP Family Medicine; Visit Provider Surgery
PROC: (CPT 46320; principal; 2023-08-03 15:00)
DX: O22.43 Hemorrhoids in pregnancy, third trimester (principal); O99.323 Drug use complicating pregnancy, third trimester; F12.90 Cannabis use, unspecified, uncomplicated; Z3A.33 33 weeks gestation of pregnancy
CPT/HCPCS: 46320; 88304; A9270; J0690; J1596; J1885; J2371; J7120

== ENCOUNTER 2023-08-30 16:27 | Outpatient (RCR) | payer BC, MEDICAID, SELFPAY ==
[2023-08-23 17:27] VITALS: BP 105/65; PULSE 70
[2023-08-30 17:20] VITALS: BP 103/78; PULSE 66
== END 2023-11-21 23:59 | disposition home or self-care (01) ==
LOC: ANHOBOP 16:27
PROVIDERS: PCP Family Medicine; Visit Provider Obstetrics & Gynecology
DX: O26.893 Other specified pregnancy related conditions, third trimester (principal); Z3A.36 36 weeks gestation of pregnancy; O36.8130 Decreased fetal movements, third trimester, not applicable or unspecified; Z3A.37 37 weeks gestation of pregnancy
CPT/HCPCS: 59025

== ENCOUNTER 2023-09-09 16:02 | Inpatient (IN) | payer BC, MEDICAID, SELFPAY ==
[2023-09-09] VITALS (49 sets, daily range): BP systolic 92–125; BP diastolic 51–91; PULSE 58–95; RESP 16; TEMP 36.5; O2SAT 95–100; BMI 24.2
[2023-09-09 16:52] LABS: Basophils Percent Auto 0.4 % (0.2-1.2); Eosinophils Percent Auto 0.1 % (0-4.4); Hematocrit 35.2 % (37.0-47.0); Hemoglobin 11.3 g/dL (12.0-15.0); Immature Granulocyte Absolute 0.02 K/mm3 (0.00-0.031); Immature Granulocyte Percent A 0.3 % (0-0.5); Lymphocytes Absolute Auto 1.71 K/mm3 (0.9-3.2); Lymphocytes Percent Auto 24.4 % (18.3-44.2); Mean Corpuscular HGB Conc 32.1 g/dl (32-36); Mean Corpuscular Hemoglobin 27.6 pg (26-34); Mean Corpuscular Volume 86.1 fl (80-100); Mean Platelet Volume 10.4 fl (7.4-10.4); Monocytes Absolute Auto 0.4 K/mm3 (0.1-0.6); Monocytes Percent Auto 6.3 % (2.6-8.5); Neutrophils Absolute Auto 4.8 K/mm3 (1.3-6.7); Neutrophils Percent Auto 68.5 % (45.5-73.1); Platelet Count Result 276 k/mm3 (150-375); Red Blood Count 4.09 M/mm3 (4.2-5.4)
[2023-09-09] MEDS: DINOPROSTONE 10 MG VAG INSERT VAGINAL (16:52)
--- NOTE | 2023-09-09 17:06 | LDADM ---
This patient, Devin Tamayo, was admitted to Labor/Delivery/Recovery 103 on 09/09/23 at 16:02. Plans for labor, pain management and were discussed with patient. Patient/family oriented to hospital policies and general routines including ID bracelet, bed and alarms, visiting hours, pain management, procedures, bathroom and other care routines, personal items, smoking policy, room service/diet and guest tray routines, security routines, and visiting hours. Patient/Family are encouraged to report perceived risks to care and to ask questions if they do not understand what they are told or what they should do. See OBIX for further documentation.
[2023-09-10] VITALS (87 sets, daily range): BP systolic 81–229; BP diastolic 47–178; PULSE 48–181; RESP 16–17; TEMP 36.6–37; O2SAT 94–100
[2023-09-10] MEDS: ONDANSETRON INJ 4 MG/2 ML VIAL IV PUSH ×3 (00:03→14:59)
[2023-09-10] MEDS: fentaNYL CITRATE INJ (*CRX) 100 MCG/2 ML VIAL 50 MCG IV PUSH ×2 (00:52→02:24)
[2023-09-10] MEDS: LACTATED RINGERS 1,000 ML 125 ML IV CONT ×3 (01:48→02:53)
--- NOTE | 2023-09-10 02:22 | WPDANESEPP ---
Anes - Eval Pre Procedure Procedure: Labor epidural Date/Time: 09/10/23 02:22 Surgeon: Kishor Preop Diagnosis: Abdominal pain with contractions Pre Op Diagnosis: IOL Patient Data Age: 23 Gender: F Height: 1.57 m Weight: 60 kg Last Vital Signs Temp 97.7 F 09/09/23 17:00 Pulse 58 L 09/10/23 02:00 Resp 16 09/09/23 23:30 BP 130/88 09/10/23 02:00 Pulse Ox 95 09/09/23 22:46 O2 Del Method Room Air 09/09/23 17:03 Allergies Allergy/AdvReac Type Severity Reaction Status Date / Time cephalexin AdvReac Severe Vomiting Verified 09/07/23 10:42 Home Medications Medication Instructions Recorded Confirmed Type vits no.126-ferrous fum 1 tablet PO HS 03/05/23 09/07/23 History 28 mg iron-folic acid 800 mcg tablet (Classic ) metoclopramide HCl 10 mg tablet 10 mg PO Q6H PRN nausea and 08/20/23 09/07/23 Rx (Reglan) vomiting #14 tabs ferrous sulfate 27 mg iron tablet 65 mg PO DAILY 08/23/23 09/09/23 History docusate sodium 100 mg capsule 100 mg PO DAILY 09/09/23 09/09/23 History (Colace) Laboratory Tests 09/09/23 16:45 WBC 7.0 K/mm3 (4.5-10.0) RBC 4.09 L M/mm3 (4.2-5.4) Hgb 11.3 L g/dL (12.0-15.0) Hct 35.2 L % (37.0-47.0) MCV 86.1 fl (80-100) MCH 27.6 pg (26-34) MCHC 32.1 g/dl (32-36) RDW 16.0 H % (11.5-14.5) Plt Count 276 k/mm3 (150-375) MPV 10.4 fl (7.4-10.4) Immature Gran % (Auto) 0.3 % (0-0.5) Neut % (Auto) 68.5 % (45.5-73.1) Lymph % (Auto) 24.4 % (18.3-44.2) [place] % (Auto) 6.3 % (2.6-8.5) Eos % (Auto) 0.1 % (0-4.4) Baso % (Auto) 0.4 % (0.2-1.2) Lymph # (Auto) 1.71 K/mm3 (0.9-3.2) [place] # (Auto) 0.4 K/mm3 (0.1-0.6) Eos # (Auto) 0.0 K/mm3 (0-0.3) Baso # (Auto) 0.0 K/mm3 (0.0-0.1) Abs Immat Gran (auto) 0.02 K/mm3 (0.00-0.031) Absolute Neuts (auto) 4.8 K/mm3 (1.3-6.7) Absolute Nucleated RBC 0.0 K/mm3 (0.0-0.012) Nucleated RBC % 0.0 % (0.0-0.2) RPR Pending Blood Type O Positive Antibody Screen Negative : gestational age HCG: positive Patient hx anesthesia problems: none Family hx anesthesia problems: none Results Review: All pre-operative results and documents have been reviewed as part of the pre-operative evaluation. [facility] Past Medical History Medical History Abdominal pain Acute pain of both ears Acute tonsillitis Anxiety Asthma Borderline personality disorder Chronic tonsillitis Depression Encounter for screening colonoscopy for [id number] patient GERD (gastroesophageal reflux disease) Headache Irritable bowel syndrome with diarrhea Nausea and vomiting Normal endoscopy Pharyngitis PTSD (post-traumatic stress disorder) Vaginal discharge Surgical History Surgical History H/O laparoscopy Hx of hemorrhoidectomy REUA, exc thrombosed external hemorrhoid on 08/03/23 Family History Family History Other Diabetes mellitus Family history of arthritis Family history of cardiovascular disease Family history of malignant neoplasm Social History Social History Smoking status: Never smoker Second hand tobacco smoke exposure: Yes ([employer]ILY [employer]) Alcohol intake: never Substance use: current Substance use type: marijuana Do You Feel Safe in your Home?: Yes Lack of Transportation: No Lack of Food: Never True Current Housing: I Have Housing Concerned About Future Housing: No Difficulty Paying Gas/Electric Bills: No Difficulty Paying for Meds: No Currently Unemployed: YES Education: Grade School Difficulty w/ Childcare or Family Care: No Living arrangements: with family Occupation/Education: occupation Additional occupation/educ
--- NOTE | 2023-09-10 06:08 | WPDOBADMIT ---
Obstetrics - Admit Note Admission Note: record reviewed. No pertinent additions to the history and/or any subsequent changes in the physical findings that are not consistent with the expected course of the were found. Additions to the history and/or subsequent changes in the physical findings follow. None. Devin is a 23yo @ 39.1wks admitted overnight for elective IOL Cervidil was used but removed ~6 hours later due to frequent/painful contractions She received an epidural and was noted to have variables this morning at 0500; on exam was found to be 9cm; SROM occurred at 0516, clear
--- NOTE | 2023-09-10 06:12 | P.PCNOB_ITS ---
OB - Vaginal Delivery Note Procedure Delivery date: 09/10/23 Events: Elective Induction of Labor Induction method: Per Cervidil Protocol Delivery monitor: External FHT and External Uterine Route of delivery: Episiotomy description: Right Mediolateral Delivery repair: vicryl Specimen: No Quantitative Blood Loss (ml): 200 Anesthesia type: Epidural Disposition: Floor Complications: No immediate complications [place] Baby Date of : 09/10/23 Time of : 05:49 Weeks of gestation at delivery: 39 (.1) gender: Male presentation: vertex position: Left Occiput Anterior Placenta delivery description: Expressed Cord Vessel Description: 3 Vessels, Nuchal Cord (x2), Reduced and Delayed Cord Clamping score one minute: 8 score five minutes: 9 Narrative: Cervidil was placed for elective induction of labor at approximately 5:00 p.m.. She began experiencing significant pain and requested the Cervidil be removed at approximately 10:45 p.m. which at that point she was only 1 cm dilated. She received her epidural and was therefore comfortable. This morning at approximately 5:00 a.m. severe variable heart decelerations were noted and she was found to be 9 cm dilated with bulging bag. The variables responded with position change, but at 0516 rupture of membranes with clear fluid was noted. Prolonged deceleration to the 70s for approximately 5 minutes was then noted. She was completely dilated at +1 station and with the next 2 contractions, did have descent, however heart tones remained in the 70s. Small right mediolateral episiotomy was cut. She pushed 1 more time and delivered the head. Nuchal cord x2 was noted. The nuchal cord was loose and easily reduced. She easily delivered the 's shoulders and body without complication. The was immediately placed skin to skin and had cry after stimulation and drying by the pediatric nurse. Delayed cord clamping was performed. The umbilical cord was then doubly clamped and cut. A segment of cord was collected for cord gases. The remaining cord blood was collected for typing. With Pitocin running and gentle downward traction on the cord, the placenta delivered without complications. Bimanual massage was performed and good uterine tone with minimal bleeding was noted. She was examined and only the RML episiotomy was noted. It was repaired in the normal fashion using 2-0 Vicryl. Good uterine tone with minimal bleeding remained. Sponge, lap, instrument, and needle counts were correct at the end of the procedure. Mom and baby were left bonding in the birthing suite in stable condition. [facility] Delivery Billing Delivery Delivery: Delivery Charge
[2023-09-10] MEDS: OXYTOCIN 30 UNITS/NS 500 ML 30 UNITS/500 ML BAG 125 UNITS IV CONT (06:49)
[2023-09-10] MEDS: IBUPROFEN 600 MG TABLET PO ×3 (09:16→22:15)
--- NOTE | 2023-09-10 09:35 | PC.NURSE ---
Patient transferred to post room #290 via wheel chair. Support person present. Oriented to unit, room, information board, rooming in, admission packet and security measures. Patient verbalizes understanding.
[2023-09-10] MEDS: MULTIVIT/MIN/PREN/FOL AC/IRON TABLET 1 TAB PO (10:55)
[2023-09-10] MEDS: DIBUCAINE 1% OINTMENT 30 GM TUBE 1 APPLIC TOPICAL (10:55)
[2023-09-10] MEDS: LANOLIN (LANSINOH) 7.5 GM CREAM 1 APPLIC TOPICAL (10:55)
[2023-09-10] MEDS: DOCUSATE SODIUM 100 MG CAPSULE PO (10:56)
[2023-09-10] MEDS: ACETAMINOPHEN 325 MG TABLET 650 MG PO ×2 (12:41→18:00)
[2023-09-10 15:32] LABS: Rapid Plasma Reagin Non-Reactive (NonReactive)
[2023-09-11] MEDS: ACETAMINOPHEN 325 MG TABLET 650 MG PO ×3 (00:53→16:14)
[2023-09-11] MEDS: IBUPROFEN 600 MG TABLET PO ×3 (04:13→17:13)
[2023-09-11 04:15] VITALS: BP 97/60; PULSE 75; RESP 16; TEMP 37.1; O2SAT 100; O2SAT 99
[2023-09-11 05:10] LABS: Hematocrit 29.2 % (37.0-47.0); Hemoglobin 9.4 g/dL (12.0-15.0)
--- NOTE | 2023-09-11 06:41 | PM.OBPNVD ---
OB - PN: Subj Subjective Date/time seen: 09/11/23 06:41 Narrative: PPD#1 Devin reports doing well today. 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 Her pain is controlled. She is tolerating regular diet, voiding, passing gas, and ambulating without issues. She is breast feeding. She would like her son circumcised. OB - PN: Obj Data Labs 09/11/23 03:43 Labs: Laboratory Results - last 24 hr 09/09/23 09/11/23 16:45 03:43 Hgb 9.4 L Hct 29.2 L RPR Non-reactive OB - PN A/P Assessment and Plan (1) Normal vaginal delivery of first : Code(s): O80 - Encounter for full-term uncomplicated delivery Status: Acute Plan day: 1 Plan: routine care and discharge home (tomorrow) Time Spent With Patient Time: Total time spent is greater than 50% in coordination of care (as documented) at patient's floor/unit and/or counseling patient: Review of Systems Constitutional: Constitutional: Denies chills, Denies fever(s) and Denies headache(s) Eyes: Eyes: Denies change in vision ENT: Denies dizziness and Denies headache(s) Cardiovascular: Cardiovascular: Denies chest pain, Denies palpitations and Denies dyspnea Respiratory: Respiratory: Denies cough and Denies dyspnea Gastrointestinal: Gastrointestinal: Denies nausea and Denies vomiting Neurologic: Denies dizziness and Denies headache(s) Endocrine: Endocrine: Denies palpitations Exam Const: General: cooperative, comfortable and no acute distress Orientation/consciousness: patient oriented x3 Resp: Effort & Inspection: normal respiratory effort Auscultation: clear to auscultation bilaterally Cardio: Rate: regular rate GI: Inspection: non-distended GI Palp: No abdominal tenderness and Yes Soft to palpation Auscultation: normal bowel sounds : Other: fundus firm Skin: General skin exam: normal color Neuro: General: patient oriented x3 Extrem: General: normal to inspection Psych: Appearance: grossly normal Affect: normal affect Attitude: cooperative
[2023-09-11] MEDS: DOCUSATE SODIUM 100 MG CAPSULE PO ×2 (08:05→17:13)
[2023-09-11] MEDS: MULTIVIT/MIN/PREN/FOL AC/IRON TABLET 1 TAB PO (08:05)
[2023-09-11] MEDS: POLYSACCHARIDE IRON COMPLEX 150 MG CAPSULE PO ×2 (08:05→17:13)
[2023-09-11 08:45] VITALS: BP 124/77; PULSE 58; RESP 16; TEMP 36.8; O2SAT 100
[2023-09-11] MEDS: ONDANSETRON HCL ODT 4 MG TABLET PO (12:33)
--- NOTE | 2023-09-11 16:16 | PC.NURSE ---
[id number] Mother is demonstrating her ability to independently latch with appropriate alignment in the football position. She denies any nipple discomfort and is responsively . detaches while passing gas and the nipple is not misshaped. Swallowing in visualized, with good rocking jaw motion, and mother denies pain with exception uterine cramping. is currently meeting outcomes for weight, output, jaundice, blood sugar and feeding frequencies of 8-12 times in 24 hours. Mother declines any additional assistance or education at this time. Mother is encouraged to call for assistance if her infant doesn?t latch, pain with latching, questions or concerns. Primary RN is present in the room.
--- NOTE | 2023-09-11 16:27 | PCCCNOTE ---
Care Coordination: Recvd consult for pt. being 23 years old and FOB is 17 years old. Met with both and pt. explains that pt. was 19 years old when pt. met him and states her parents, and his parents are all in agreement and supportive of situation. Pt. further explains FOEmmett Fallon's birthday is September 21, 2003. Pt. reports she, FOB, and baby will be living in the apartment above pt's garage, and that her parents Maritza and John live right next door. Pt. reports FOB's mother, pt's Aunt, and sister are all supportive as well. Pt. reports has all baby supplies and already established with both WIC and [employer]. Pt. denies DCFS involvement. Pt. self reports THC use during for appetite and nausea. Pt. reports has history of IBS, endometriosis, and mental health dx. Pt. reports current with [facility], Psych, for about two years. resources provided to pt. EDDA Heredia aware of visit. No further needs indicated.
[2023-09-11] MEDS: SIMETHICONE 80 MG TAB.CHEW PO (19:12)
[2023-09-11 20:09] VITALS: BP 145/80; PULSE 58; RESP 18; TEMP 36.9; O2SAT 100
--- NOTE | 2023-09-12 06:31 | P.DS_ITS ---
DS: Admitting Diagnosis Discharge Date 09/12/23 Admitting Diagnosis Elective induction of labor DS: Discharge Diagnosis Discharge Diagnosis (1) Normal vaginal delivery of first : Code(s): O80 - Encounter for full-term uncomplicated delivery Status: Acute OB - DS: Summary OB Procedures : Ultrasound OB Procedures Intrapartum: Spontaneous Vag Delivery OB Procedures: : None Peripartum Data Infant Delivery Method: Natural Vaginal Laceration Description: None Episiotomy description: Right Mediolateral complications: none Dickinson 1: Gender: Male Disposition of : home Status at Discharge Functional status at discharge: independent ambulation Overall status at discharge: patient is back to baseline Time Spent with Patient Time attestation: Total time spent providing and/or coordinating discharge services: Exam Const: General: cooperative, healthy appearing, comfortable and no acute distress Orientation/consciousness: patient oriented x3 Resp: Effort & Inspection: normal respiratory effort Auscultation: clear to auscultation bilaterally Cardio: Rate: regular rate GI: Inspection: non-distended GI Palp: No abdominal tenderness and Yes Soft to palpation Auscultation: normal bowel sounds : Other: fundus firm Skin: General skin exam: normal color Neuro: General: patient oriented x3 Extrem: General: normal to inspection Psych: Appearance: grossly normal Affect: normal affect Attitude: cooperative Discharge Plan Discharge Attending physician on discharge: Lainey Iverson Discharging Clinician: Lainey Iverson Anticipated Discharge Date/Time: 09/12/23 09:00 Patient Disposition: Home, Self-Care Activity: may shower and pelvic rest Diet: as tolerated and regular Patient Instructions: Perineal Tear with Delivery (DC), Vaginal Delivery (DC) Stand Alone Forms: General Discharge Information Follow-up/Referrals: Lainey Iverson MD [Physician] - 4 Weeks Discharge Medications: New acetaminophen 325 mg Tablet 650 mg PO Q6H PRN (Reason: Mild Pain (1-3) Or Headache) Qty: 60 0RF ibuprofen 600 mg Tablet 600 mg PO Q6H PRN (Reason: Cramping) Qty: 40 0RF Continued Classic 28 mg iron- 800 mcg tablet 1 tablet PO HS docusate sodium [Colace] 100 mg Capsule 100 mg PO DAILY Qty: 120 0RF Discontinued ferrous sulfate 27 mg iron Tablet 65 mg PO DAILY metoclopramide HCl [Reglan] 10 mg tablet 10 mg PO Q6H PRN (Reason: nausea and vomiting) Qty: 14 0RF Date of admission: 09/09/23 16:02 Primary Care Provider: Manuel Mendoza Admitting Provider: Lainey Iverson Attending physician on admission: Lainey Iverson Condition: Stable
[2023-09-12 08:10] VITALS: BP 108/65; PULSE 57; RESP 16; TEMP 37.3; O2SAT 99
[2023-09-12] MEDS: MULTIVIT/MIN/PREN/FOL AC/IRON TABLET 1 TAB PO (08:14)
[2023-09-12] MEDS: IBUPROFEN 600 MG TABLET PO (08:14)
[2023-09-12] MEDS: POLYSACCHARIDE IRON COMPLEX 150 MG CAPSULE PO (08:14)
[2023-09-12] MEDS: DOCUSATE SODIUM 100 MG CAPSULE PO (08:14)
[2023-09-12] MEDS: ACETAMINOPHEN 325 MG TABLET 650 MG PO (08:14)
[2023-09-12] MEDS: TETANUS,DIPHTHERIA,AC PERTUSSIS ADULT (0.5 ML) BOOSTRIX IM (08:15)
[2023-09-12] MEDS: WITCH HAZEL 40 PADS 1 PAD TOPICAL (08:15)
[2023-09-12] MEDS: ONDANSETRON HCL ODT 4 MG TABLET PO (11:57)
--- NOTE | 2023-09-12 13:31 | PC.NURSE ---
[id number] Mother led the conversation with her experience so far, plan to feed her infant, and her ability to independently latch optimally without discomfort. Mother optimally latched her to the right breast using the cross cradle positioning, then adjusted to cradle. Mother denies pain, infant has a big, open, wide gape with latching, nice rounded cheek line, and swallowing was visualized and heard with 1:1 suck/swallowing counting to 10 in a row plus more but we stopped counting. Reminded mother to use good handwashing technique to prevent infection. Mother is feeding appropriately for growth of infant and understands stimulating infant to eat if needed. Infant has had appropriate feedings in the last 24 hours meets the outcomes for weight, output, blood sugar and jaundice at this time. Mother states she is confident to continue effectively her at home, when to call for assistance, denies any additional assistance or education at this time. Reinforced understanding of milk production, transition of milk, signs of adequate intake, transition of stool, prevention/relief of engorgement, plugged ducts, mastitis, responsive watching for feeding cues, the different methods of stimulating infant to breastfeed 1-3 hours after the start of the last feeding, community resources, medication information reviewed per [employer] and when to call a provider using the resource of the mom and baby guide. Mother voiced understanding of the education shared. Reported to the Primary RN.
[2023-09-13 11:36] VITALS: BP 124/75; PULSE 50; RESP 18; TEMP 36.7; O2SAT 100
== END 2023-09-12 12:14 | disposition home or self-care (01) | DRG 807 ==
LOC: ANHLDR 16:09 → ANHOB2 09-10 09:45
PROVIDERS: Admitting Provider Obstetrics & Gynecology; PCP Family Medicine; Visit Provider Obstetrics & Gynecology
DX: O69.81X0 Labor and delivery complicated by cord around neck, without compression, not applicable or unspecified (principal); Z37.0 Single live birth; O76 Abnormality in fetal heart rate and rhythm complicating labor and delivery; Z3A.39 39 weeks gestation of pregnancy
CPT/HCPCS: 36415; 85014; 85018; 85025; 86592; 86850; 86900; 86901; 90715; A9270; J2405; J2590; J2795; J3010; J7120

== ENCOUNTER 2024-07-28 13:31 | Outpatient (CLI) | payer BC, MEDICAID, SELFPAY ==
--- NOTE | ~2024-07-28 | US_ITS ---
EXAMINATION: US OB <= 14 weeks fetus DATE: 07/28/2024 14:15 INDICATION: Hematuria. TECHNIQUE: Real-time transabdominal pelvic ultrasound was performed. COMPARISON: None. FINDINGS: The uterus measures 10.1 x 9.8 x 9.7 cm. There is an intrauterine gestational sac. A yolk sac is iden tified. The crown rump length measures 2.4 cm, which correlates with an estimated gestational age of 9 weeks and 0 day(s) (+/-) 6 day(s). heart motion is not identified by M-mode Doppler. T he right ovary measures 2.9 x 1.2 x 2.0 cm. The left ovary measures 3.1 x 1.9 x 1.9 cm. There is no f ree fluid in the pelvis. IMPRESSION: 1. demise. Reviewed, dictated and finalized at location A. OR CIRCULAR GLASS CUTTER IMPRESSION: 1. demise.
[2024-07-28 22:42] LABS: HIV 1/2 Ab P24 Ag Result Negative (Negative)
[2024-07-28 23:47] LABS: Hepatitis B Surface Antigen Negative (Negative); Rubella IgG Antibody 39.4 IU/ML
[2024-07-29 10:22] LABS: Rapid Plasma Reagin Non-Reactive (NonReactive)
[2024-07-29 17:13] LABS: Varicella IgG Antibody <1.00 S/CO
== END 2024-07-28 13:32 | disposition home or self-care (01) ==
PROVIDERS: PCP Family Medicine; Visit Provider Obstetrics & Gynecology
DX: O36.4XX0 Maternal care for intrauterine death, not applicable or unspecified (principal); N94.89 Other specified conditions associated with female genital organs and menstrual cycle; N91.2 Amenorrhea, unspecified
CPT/HCPCS: 36415; 76801; 84702; 86592; 86644; 86703; 86747; 86762; 86787; 87086; 87340; G0432

== ENCOUNTER 2024-08-21 12:42 | Emergency (ER) | payer BC, MEDICAID, SELFPAY ==
--- NOTE | ~2024-08-21 | CT_ITS ---
EXAMINATION: CT abdomen pelvis w con DATE: 08/21/2024 14:15 INDICATION: Abdominal pain. TECHNIQUE: Computed tomography (CT) of the abdomen and pelvis was performed with 100 mL Omnipaque 350 intravenous contrast. Automated exposure control and iterative reconstruction technique were employe d. The dose-length product was 173.28 mGy-cm. COMPARISON: None. FINDINGS: The visualized portions of lung bases are clear without pneumonia or pleural effusion. The heart size is normal. No pericardial effusion. The liver, gallbladder, spleen, pancreas, adrenal glan ds, and kidneys are normal. There are no dilated loops of bowel. The appendix is normal. There are no pathologically enlarged lymph nodes. There is physiologic fluid in the pelvis. There is thoracolumba r levoscoliosis. IMPRESSION: 1. No etiology for the patient's symptoms. Reviewed, dictated and finalized at location A. UNDER
[2024-08-21 12:42] VITALS: BP 149/75; PULSE 59; RESP 17; TEMP 36.6; O2SAT 100
--- OUTSIDE RECORDS SUMMARY | 2024-08-21 12:46 | XMS_ITS | Encounter Summary ---
Author Organization [facility] Address [address] [place] [address] Care Team Providers Care Artist'S Model Name Role Phone Manuel Mendoza MD Primary Care Provider [phone] Reason for Visit * Reason Onset Date Comments Case Management 03/27/2016 BOEJOSE HASSAN DO S [id number] Encounter Details Date Type Department Care Team (Late st Contact Info) Description 03/27/2016 Patient Outreach [facility] Outpatient Care Management - [place] [address] [place] [address] Catarino Wyman, [facility] [address] [place] [address] Case Management (ROYAL WAIVER DOS [id number] ) Social History Tobacco Use Types Packs/Day Years Used Date Smoking Tobacco: Never Assessed Comments Unknown Sex and Gender Information Value Date Recorded Sex Assigned at Not on file Legal Sex Female 5:19 PM MILLINERY DESIGNER Gender Identity Not on file Sexual Orientation Not on file documented as of this encounter Plan of Treatment Not on file documented as of this encounter Visit Diagnoses Not on filedocumented in this encounter Care Teams Artist'S Model Relationship Specialty Start Date End Date Manuel Mendoza MD [address] [facility] [address] [place] [id number] PCP - General Family Practice 08/02/18 documented as of this encounter
--- OUTSIDE RECORDS SUMMARY | 2024-08-21 12:46 | XMS_ITS | Patient Health Summary ---
Author Organization [facility] [employer] Address [address] [place] [address] Care Team Providers Care Regasification Plant Operator Name Role Phone Manuel Mendoza MD Primary Care Provider [phone] Note [address] [facility],non-owned Affiliates and Associated Physician Practices is amultiple site organization consisting of ambulatory clinics and hospital sitesin [place], [place], [place] and [place]. This disclosure is being madepursuant to the Care Everywhere program and may not contain all information available regarding this patient. Last updated 18.[facility] [employer] Allergies No known active allergies Medications * Be aware that medications may not be up to date on this document. Alwaysverify current medications with the patient. * ranitidine (ZANTAC) 75 MG tablet Take 75 mg by mouth once daily * cetirizine (ZYRTEC) 10 MG chew tablet Take 10 mg by mouth once daily * diphenhydrAMINE (BENADRYL) 25 MG capsule Take 12.5 mg by mouth at bedtime * fluticasone propionate (FLONASE) 50 MCG/ACT nasal spray [place] 2 Sprays into each nostril once daily Active Problems Problem Noted Date Diagnosed Date Radius and ulna distal fracture 06/01/2015 Fracture Social History Tobacco Use Types Packs/Day Years Used Date Smoking Tobacco: Never Sex and Gender Information Value Date Recorded Sex Assigned at Not on file Gender Identity Not on file Sexual Orientation Not on file Last Filed Vital Signs Vital Sign Reading Time Taken Comments Blood Pressure 115/70 04/19/2015 10:15 PM CDT Pulse 98 04/19/2015 10:20 PM CDT Temperature 36.5 C (97.7 F) 04/19/2015 8:37 PM CDT Respiratory Rate 19 04/19/2015 10:20 PM CDT Oxygen Saturation 100% 04/19/2015 10:20 PM CDT Inhaled Oxygen Concentration - - Weight 31.8 kg (70 lb 1.7 oz) 04/19/2015 8:37 PM CDT Height - - Body Mass Index - - Procedures * [place] SURGERY LESS 60 MIN(Performed 04/19/2015) Performed for Fracture * XR FOREARM LEFT 2VW OR MORE(Performed 04/19/2015) Performed for Fracture * XR HAND RIGHT 3VW OR MORE(Performed 01/27/2014) Performed for Fracture * XR HAND RIGHT 3VW OR MORE(Performed 08/26/2013) Performed for Fracture * XR HAND RIGHT 3VW OR MORE(Performed 07/17/2013) Performed for Closed fracture of unspecified phalanx or phalanges of hand * XR FINGER(S) RIGHT(Performed 06/17/2013) Performed for Closed fracture of unspecified phalanx or phalanges of hand Results * [place] SURGERY LESS 60 MIN (04/19/2015 10:28 PM CDT) Narrative [facility] - 04/21/2015 8:31 AM CDT No Dictation. Wes MCCOY Performing Organization Address City/State/[facility] Co de Phone Number [facility] [address] [phone] * XR FOREARM 2 VW LEFT (04/19/2015 10:28 PM CDT) Anatomical Region Laterality Modality Upper Extremity Radiographic Kim ging 04/20/2015 7:56 AM CDT Impressions 04/20/2015 7:57 AM CDT Casted distal left radial diaphyseal fracture. Narrative 04/20/2015 7:57 AM CDT 2 views of the left forearm performed April 19, 2015. History: Status post cast placement. Frontal and lateral views of the left radius and ulna were obtained with a cast in place which obscures underlying bony detail. There is evidence of a fracture involving the distal radial diaphysis with slight posterior angulation of the distal radial fragment. Radiocarpal alignment is intact. No other definite fractures are seen through the cast. Procedure Note Jada Arshad MD - 04/20/2015 2 views of the left forearm performed April 19, 2015. History: Status post cast placement. Frontal and lateral views of the left radius and ulna were obtained with a cast in place which obscures underlying bony detail. There is evidence of a fracture involving the distal radial diaphysis with slight posterior angulation of the distal radial fragment. Radiocarpal alignment is intact. No other definite fractures are seen through the cast. IMPRESSION Casted distal left radial diaphyseal fracture. Wes Bearden DO DIAGNOSTIC IMAGI NG ORDERABLES * XR HAND 3+ VW RIGHT (01/27/2014 1:49 PM CDT) Only the most recent of3 resultswithin the time period is included. Anatomical Region Laterality Modality Wrist / Hand Radiographic Kim ging 01/27/2014 1:50 PM CDT Impressions 01/27/2014 3:12 PM CDT No acute fracture. Diffuse osteopenia. Dictated by Stephen Peraza on 01/27/2014 2:58 PM Jada Martin, have personally reviewed the images and I agree with this report. Narrative 01/27/2014 3:12 PM CDT Examination: X-ray right hand, 3 views, performed on January 27, 2014 at 1347 History: The fifth digit middle phalanx fracture Comparison: 08/26/2013 at 1344 Findings: There is diffuse osteopenia. No fracture or subluxation is seen. There is mild clinodactyly. Procedure Note Jada Arshad MD - 01/27/2014 Examination: X-ray right hand, 3 views, performed on January 27, 2014 at 1347 History: The fifth digit middle phalanx fracture Comparison: 08/26/2013 at 1344 Findings: There is diffuse osteopenia. No fracture or subluxation is seen. There is mild clinodactyly. IMPRESSION No acute fracture. Diffuse osteopenia. Dictated by Stephen Peraza on 01/27/2014 2:58 PM Jada Martin, have personally reviewed the images and I agree with this report. Sandip Gunn MD DIAGNOSTIC IMAGING O RDERABLES * XR FINGER(S) RIGHT (06/17/2013 10:46 AM CLINICAL SOCIAL WORKER) Anatomical Region Laterality Modality Wrist / Hand, Upper Extremity Ra diographic Imaging 06/17/2013 10:5 4 AM CLINICAL SOCIAL WORKER Impressions 06/17/2013 11:43 AM CLINICAL SOCIAL WORKER Impression Subtle deformity with periosteal reaction at the distal aspect of the fifth middle phalanx, consistent with healing fracture. D: Nilson Chamorro MD. Arnol Martin, have personally reviewed the images and I agree with this report. Narrative 06/17/2013 11:43 AM CLINICAL SOCIAL WORKER Exam: Right fifth digit, 3 views Exam Date: 06/17/2013 Comparison: None available History: Pain Findings: There is subtle deformity with periosteal reaction at the distal aspect of the fifth middle phalanx, consistent with healing fracture. There is mild soft tissue swelling of the fifth middle phalanx. The joint spaces are otherwise preserved. Procedure Note Arnol Slaughter MD - 06/17/2013 Exam: Right fifth digit, 3 views Exam Date: 06/17/2013 Comparison: None available History: Pain Findings: There is subtle deformity with periosteal reaction at the distal aspect of the fifth middle phalanx, consistent with healing fracture. There is mild soft tissue swelling of the fifth middle phalanx. The joint spaces are otherwise preserved. IMPRESSION Impression Subtle deformity with periosteal reaction at the distal aspect of the fifth middle phalanx, consistent with healing fracture. D: Nilson Chamorro MD. Arnol Martin, have personally reviewed the images and I agree with this report. Tera Velarde MD DIAGNOSTIC IMAGING O RDERABLES Care Teams Regasification Plant Operator Relationship Specialty Start Date End Date Manuel Mendoza MD [address] [place] [address] PCP - General 03/14/21
--- OUTSIDE RECORDS SUMMARY | 2024-08-21 12:46 | XMS_ITS | Clinical Summary ---
Author Organization [facility] [employer] Address [address] [place] [address] Care Team Providers Care Homebound Teacher Name Role Phone Manuel Mendoza MD Primary Care Provider [phone] Source Comments [facility] [employer],non-owned Affiliates and Associated Physician Practices is amultiple site organization consisting of ambulatory clinics and hospital sitesin [place], [place], [place] and [place]. This disclosure is being madepursuant to the Care Everywhere program and may not contain all information available regarding this patient. Last updated 18.[facility] [employer] Allergies No known active allergies Medications * Be aware that medications may not be up to date on this document. Alwaysverify current medications with the patient. Medication Sig Dispensed Refills Start Date End Date Status ranitidine (ZANTAC) 75 MG tablet Take 75 mg by mouth once daily Active cetirizine (ZYRTEC) 10 MG chew tablet Take 10 mg by mouth once daily Active diphenhydrAMINE (BENADRYL) 25 MG capsule Take 12.5 mg by mouth at bedtime Active fluticasone propionate (FLONASE) 50 MCG/ACT nasal spray [place] 2 Sprays into each nostril once daily Active Active Problems Problem Noted Date Diagnosed Date Radius and ulna distal fracture 06/01/2015 Fracture Family History Medical History Relation Name Comments Diabetes Maternal Grandmother Relation Name Status Comments Maternal Grandmother Social History Tobacco Use Types Packs/Day Years [...] - - Body Mass Index - - Plan of Treatment Health Maintenance Due Date Last Done Comments PAP SMEAR 2002 HIV SCREENING 2017 HPV VACCINE (1 - 3-dose series) 2017 CHLAMYDIA/GONORRHEA SCREENING 2018 MENINGOCOCCAL (Group B) VACC INE (1 of 2 - Standard) 2018 HEPATITIS C SCREENING 06/11/2020 DTAP/TDAP/TD VACCINES (1 - Tdap) 2021 HEPATITIS B VACCINE (1 of 3 - 19+ 3-dose series) 2021 COVID-19 VACCINE (1 - 2023-2 5 season) 2024 INFLUENZA VACCINE (#1) 2024 DEPRESSION SCREENING 07/16/2024 ZOSTER VACCINE (1 of 2) 2052 HIB VACCINE Aged Out No longer eligi ble based on patient's age to complete this topic MENINGOCOCCAL VACCINE Aged Out No neeru lanny eligible based on patient's age to complete this topic PNEUMOCOCCAL VACCINE Aged Out No long er eligible based on patient's age to complete this topic Care Teams Homebound Teacher Relationship Specialty Start Date End Date Manuel Mendoza MD [address] [place] [address] PCP - General 03/14/21
--- OUTSIDE RECORDS SUMMARY | 2024-08-21 12:46 | XMS_ITS | Referral Summary ---
Author Organization [facility] [employer] Address [address] [place] [address] Care Team Providers Care Licensed Chemical Spray Technician Name Role Phone Manuel Mendoza MD Primary Care Provider [phone] Source Comments [facility] [employer],non-owned Affiliates and Associated Physician Practices is amultiple site organization consisting of ambulatory clinics and hospital sitesin [place], [place], [place] and [place]. This disclosure is being madepursuant to the Care Everywhere program and may not contain all information available regarding this patient. Last updated 18.[facility] [employer] Allergies No known active allergies Medications * [...] fluticasone propionate (FLONASE) 50 MCG/ACT nasal spray [place] 2 Sprays into each nostril once daily [...] Mass Index - - Plan of Treatment Not on file Care Teams Licensed Chemical Spray Technician Relationship Specialty Start Date End Date Manuel Mendoza MD [address] [place] [address] PCP - General 03/14/21
--- OUTSIDE RECORDS SUMMARY | 2024-08-21 12:46 | XMS_ITS | Clinical Summary ---
Author Organization [facility] [employer] Address [address] [place] [address] Care Team Providers Care Plc Programmer Name Role Phone Manuel Mendoza MD Primary Care Provider [phone] Allergies No known active allergies Medications raNITIdine (ZANTAC) 75 mg Tablet Take 75 mg by mouth daily. Active diphenhydrAMINE (BENADRYL) 25 mg tablet Take 12.5 mg by mouth nightly as needed for Allergies. Active fluticasone (FLONASE) 50 mcg/spray [place], Suspension Administer 2 Sprays in each nostril daily. Active norethindrone Ac-Eth estradiol 1-20 mg-mcg tablet 8 Active vilazodone (VIIBRYD) 10 mg Tablet Take by mouth daily. Active clobetasol (TEMOVATE) 0.05 % Ointment Apply to affected area 2 times daily. Apply to palms and soles 60 Gram 1 9 Active glycopyrrolate (ROBINUL) 1 mg tablet TAKE ONE TABLET BY MOUTH TWICE A DAY 30 Tablet 1 9 Active Active Problems No known active problems Social History Tobacco Use Types Packs/Day Years Used Date Smoking Tobacco: Never Smokeless Tobacco: Never Alcohol Use Standard Drinks/Week Comments No 0 (1 standard drink = 0.6 oz pur e alcohol) Comments No Sex and Gender Information Value Date Recorded Sex Assigned at Not on file Legal Sex Female 5:19 PM BOTTOM MAN Gender Identity Not on file Sexual Orientation Not on file Last Filed Vital Signs Vital Sign Reading Time Taken Comments Blood Pressure 100/70 03/31/2019 3:38 PM CDT Pulse 110 11/27/2018 7:01 PM CDT Temperature 36.8 C (98.2 F) 11/27/2018 6:17 PM CDT Respiratory Rate 18 11/27/2018 7:01 PM CDT Oxygen Saturation 98% 11/27/2018 7:01 PM CDT Inhaled Oxygen Concentration - - Weight 48.5 kg (107 lb) 03/31/2019 3:38 PM CDT Height 156.2 cm (5' 1.5 ) 03/31/2019 3:38 PM CDT Body Mass Index 19.89 03/31/2019 3:38 PM CDT Plan of Treatment Health Maintenance Due Date Last Done Comments CHLAMYDIA SCREENING (ANNUAL) 11-24 YEARS 2013 HPV VACCINES (1 - 3-dose series) 2017 DTAP/TDAP/TD VACCINES (1 - Tdap) 2021 HEPATITIS B VACCINES (1 of 3 - 19+ 3-dose series) 2021 CERVICAL CANCER SCREENING 2023 INFLUENZA VACCINE (#1) 2024 PNEUMOCOCCAL VACCINE 0-64 YEARS Aged Out No longer eligible based on patient's age to complete this topic Care Teams Plc Programmer Relationship Specialty Start Date End Date Manuel Mendoza MD [address] [facility] [address] [place] [id number] PCP - General Family Practice 08/02/18
--- NOTE | 2024-08-21 12:52 | ECG_ITS ---
Test Date: 2024-08-21 13:13:22 Measurements Intervals [place] Rate: 51 P: 42 ME: 124 QRS: 87 QRSD: 87 T: 70 QT: 420 QTc: 388 Interpretive Statements SINUS BRADYCARDIA MINIMAL Q WAVES- INFERIOR LEADS BORDERLINE ECG No previous ECG available for comparison Electronically Signed On 08-21-2024 13:55:16 CAUL PULLER by Inder Ramos D.O.
[2024-08-21] MEDS: SODIUM CHLORIDE 0.9% IV 1,000 ML 999 ML IV CONT (13:21)
[2024-08-21] MEDS: ONDANSETRON INJ 4 MG/2 ML VIAL IV PUSH (13:23)
[2024-08-21 13:27] LABS: Basophils Absolute Auto 0.05 K/mm3 (0.00-0.10); Basophils Percent Auto 0.9 % (0.0-1.0); Eosinophils Absolute Auto 0.11 K/mm3 (0.02-0.50); Eosinophils Percent Auto 2.1 % (1.0-6.0); Hematocrit 37.8 % (35.0-49.0); Immature Granulocyte Absolute 0.02 K/mm3 (0.00-0.00); Immature Granulocyte Percent A 0.4 % (0.0-0.0); Lymphocytes Absolute Auto 1.76 K/mm3 (1.10-4.50); Lymphocytes Percent Auto 33.1 % (18.0-42.0); Mean Corpuscular HGB Conc 31.7 g/dL (32-36); Mean Corpuscular Hemoglobin 27.3 pg (27.0-31.0); Mean Corpuscular Volume 86.1 fL (78.0-102.0); Mean Platelet Volume 10.5 fl (9.2-11.8); Monocytes Absolute Auto 0.29 K/mm3 (0.10-0.90); Monocytes Percent Auto 5.5 % (2.0-11.0); Neutrophils Absolute Auto 3.09 K/mm3 (1.70-7.20); Platelet Count Result 320 K/mm3 (150-420); Red Blood Count 4.39 M/mm3 (4.20-5.40); Red Cell Distribution Width 15.4 % (11.6-14.4); White Blood Count 5.3 K/mm3 (4.8-10.8)
[2024-08-21 13:30] VITALS: BP 105/60; PULSE 65; RESP 16; O2SAT 98
[2024-08-21 13:31] LABS: Pregnancy On Board Control Positive; Urine Pregnancy Test Positive
[2024-08-21 13:33] LABS: Add Urine Microscopic? YES; Appearance Urine Clear (Clear); Bilirubin Urine Negative (Negative); Blood Urine 2+ (Negative); Color Urine Light Yellow (Yellow); Glucose Urine UA Negative (Negative); Ketones Urine Negative (Negative); Leukocyte Esterase Ur Negative LEU/UL (Negative); Nitrate Urine Negative (Negative); Protein Urine Trace (Negative); Specific Grav Ur >= 1.030 (1.010-1.020); Urobilinogen Urine 0.2 mg/dL (0.2-1.0)
[2024-08-21 13:39] LABS: Bacteria Urine Trace /hpf; Squamous Epithelial Cell Urine Moderate /hpf (Few); WBC Urine None seen /hpf (0-3)
--- OUTSIDE RECORDS SUMMARY | 2024-08-21 13:40 | XMS_ITS | Clinical Summary ---
Author Organization [facility] [employer] Address [address] [facility] [place] [address] Care Team Providers Care Asphalt Paver Operator Name Role Phone Manuel Mendoza MD Primary Care Provider Source Comments [facility] [employer],non-owned Affiliates and Associated Physician Practices is amultiple site organization consisting of ambulatory clinics and hospital sitesin [place], [place], [place] and [place]. This disclosure is being madepursuant to the Care Everywhere program and may not contain all information available regarding this patient. Last updated 18.[facility] [employer] Allergies No known active allergies Medications * [...] fluticasone propionate (FLONASE) 50 MCG/ACT nasal spray [place] 2 Sprays into each nostril once daily [...] age to complete this topic Care Teams Asphalt Paver Operator Relationship Specialty Start Date End Date Manuel Mendoza MD [address] [place] [address] PCP - General 03/14/21
--- OUTSIDE RECORDS SUMMARY | 2024-08-21 13:40 | XMS_ITS | Encounter Summary ---
Author Organization [facility] Address [address] [place] [address] Care Team Providers Care Life Agent Name Role Phone Manuel Mendoza MD Primary Care Provider [phone] Reason for Visit * Reason Onset Date Comments Case Management 03/27/2016 BOEJOSE HASSAN DO S [id number] Encounter Details Date Type Department Care Team (Late st Contact Info) Description 03/27/2016 Patient Outreach [facility] Outpatient Care Management - [place] [address] [place] [address] Catarino Wyman, [facility] [address] [place] [address] Case Management (ROYAL WAIVER DOS [id number] ) Social History Tobacco Use Types Packs/Day Years Used Date Smoking Tobacco: Never Assessed Comments Unknown Sex and Gender Information Value Date Recorded Sex Assigned at Not on file Legal Sex Female 5:19 PM ANTENNA SPECIALIST Gender Identity Not on file Sexual Orientation Not on file documented as of this encounter Plan of Treatment Not on file documented as of this encounter Visit Diagnoses Not on filedocumented in this encounter Care Teams Life Agent Relationship Specialty Start Date End Date Manuel Mendoza MD [address] [facility] [address] [place] [id number] PCP - General Family Practice 08/02/18 documented as of this encounter
--- OUTSIDE RECORDS SUMMARY | 2024-08-21 13:40 | XMS_ITS | Patient Health Summary ---
Author Organization [facility] Address [address] [place] [place] [address] Care Team Providers Care Cemetery Worker Name Role Phone Manuel Mendoza MD Primary Care Provider [phone] Note from [facility],non-owned Affiliates and Associated Physician Practices is amultiple site organization consisting of ambulatory clinics and hospital sitesin [place], [place], [place] and [place]. This disclosure is being madepursuant to the Care Everywhere program and may not contain all information available regarding this patient. Last updated 18.[facility] Allergies No known active allergies Medications * [...] fluticasone propionate (FLONASE) 50 MCG/ACT nasal spray [place] 2 Sprays into each nostril once daily [...] 60 MIN (04/19/2015 10:28 PM CDT) Narrative [facility] - 04/21/2015 8:31 AM CDT No Dictation. Wes MCCOY Performing Organization Address City/State/[facility] Co de Phone Number [facility] [address] [phone] * XR FOREARM 2 VW LEFT (04/19/2015 [...] * XR FINGER(S) RIGHT (06/17/2013 10:46 AM CORN PRESS OPERATOR) Anatomical Region Laterality Modality Wrist / Hand, Upper Extremity Ra diographic Imaging 06/17/2013 10:5 4 AM CORN PRESS OPERATOR Impressions 06/17/2013 11:43 AM CORN PRESS OPERATOR Impression Subtle deformity with periosteal reaction at the distal aspect of the fifth middle phalanx, consistent with healing fracture. D: Nilson Chamorro MD. Arnol Martin, have personally reviewed the images and I agree with this report. Narrative 06/17/2013 11:43 AM CORN PRESS OPERATOR Exam: Right fifth digit, 3 views Exam [...] MD DIAGNOSTIC IMAGING O RDERABLES Care Teams Cemetery Worker Relationship Specialty Start Date End Date Manuel Mendoza MD [address] [place] [address] PCP - General 03/14/21
--- OUTSIDE RECORDS SUMMARY | 2024-08-21 13:40 | XMS_ITS | Clinical Summary ---
Author Organization [facility] Address [address] [place] [address] Care Team Providers Care Final Inspector Truck Trailer Name Role Phone Manuel Mendoza MD Primary Care Provider [phone] Allergies No known active allergies Medications raNITIdine (ZANTAC) 75 mg Tablet Take 75 mg by mouth daily. Active diphenhydrAMINE (BENADRYL) 25 mg tablet Take 12.5 mg by mouth nightly as needed for Allergies. Active fluticasone (FLONASE) 50 mcg/spray [place], Suspension Administer 2 Sprays in each nostril [...] on file Legal Sex Female 5:19 PM CORPORATE ASSOCIATE ATTORNEY Gender Identity Not on file Sexual Orientation [...] age to complete this topic Care Teams Final Inspector Truck Trailer Relationship Specialty Start Date End Date Manuel Mendoza MD [address] [facility] [address] [place] [address] PCP - General Family Practice 08/02/18
--- OUTSIDE RECORDS SUMMARY | 2024-08-21 13:40 | XMS_ITS | Referral Summary ---
Author Organization [facility] Address [address] [place] [address] Care Team Providers Care Woodworking Machine Operator Name Role Phone Manuel Mendoza MD Primary Care Provider [phone] Source Comments [facility],non-owned Affiliates and Associated Physician Practices is amultiple site organization consisting of ambulatory clinics and hospital sitesin [place], [place], [place] and [place]. This disclosure is being madepursuant to the Care Everywhere program and may not contain all information available regarding this patient. Last updated 18.[facility] Allergies No known active allergies Medications * [...] fluticasone propionate (FLONASE) 50 MCG/ACT nasal spray [place] 2 Sprays into each nostril once daily [...] of Treatment Not on file Care Teams Woodworking Machine Operator Relationship Specialty Start Date End Date Manuel Mendoza MD [address] [place] [address] PCP - General 03/14/21
[2024-08-21 13:41] LABS: Partial Thromboplastin Time 29.3 Sec (23.9-30.70); Prothrombin Time 11.1 Seconds (9.50-12.1)
[2024-08-21 13:46] LABS: Alanine Aminotransferase 10 U/L (14-59); Albumin Level 4.2 g/dL (3.4-5.0); Alkaline Phosphatase 85 U/L (46-116); Anion Gap 12 mmol/L (4-12); Aspartate Amino Transferase 10 U/L (15-37); Bilirubin,Total 0.6 mg/dL (0.00-1.00); Blood Urea Nitrogen 10 mg/dL (7-18); Calcium 9.3 mg/dL (8.5-10.1); Carbon Dioxide 24 mmol/L (21-32); Chloride 104 mmol/L (98-108); Estimated CRCL calculation 60 ml/min; Estimated Glomerular Filt Rate > 60; Glucose 105 mg/dL (70-99); Osmolality Calculated 289 mOsm/kg (285-295); Potassium 3.6 mmol/L (3.5-5.1); Sodium 140 mmol/L (136-145); Total Protein 7.4 g/dL (6.4-8.2)
[2024-08-21 14:00] VITALS: BP 109/75; PULSE 62; RESP 17; O2SAT 100
[2024-08-21 14:30] VITALS: BP 112/79; PULSE 60; RESP 16; O2SAT 99
--- NOTE | 2024-08-21 14:46 | ED.ABDPAIN ---
HPI - Abdominal Pain General Chief Complaint: Urogenital-Female Stated Complaint: left flank pain Time Seen by Provider: 08/21/24 12:43 Source: patient and family Mode of arrival: ambulatory Limitations: no limitations History of Present Illness HPI narrative: this is a 24-year-old female with no significant past medical history presents with abdominal pain with left flank pain radiating into her left groin area no suprapubic tenderness no hematuria no dysuria no fever chills does have some nausea with no vomiting no shortness of breath no chest pain. MD elicited complaint: abdominal pain and flank pain Onset (ago): hour(s) Pain Consistency: intermittent Severity: moderate Pain scale (0-10): 5 Quality: cramping and aching Related Data Home Medications ?Medication ?Instructions ?Recorded ?Confirmed ?Last Taken ?Type vitamins-iron fumarate 65 1 tablet PO DAILY 07/01/24 08/18/24 07/30/24 History mg iron-folic acid 1 mg tablet Allergies Allergy/AdvReac Type Severity Reaction Status Date / Time cephalexin AdvReac Severe Vomiting Verified 08/21/24 12:49 Review of Systems Review of Systems: All systems reviewed & are unremarkable except as noted in HPI and below PMFSH Past Medical History Medical History Lightheadedness Vaginal discharge Normal endoscopy Encounter for screening colonoscopy for [id number]-khdx patient Borderline personality disorder PTSD (post-traumatic stress disorder) Irritable bowel syndrome with diarrhea Abdominal pain Nausea and vomiting Anxiety GERD (gastroesophageal reflux disease) Asthma Headache Pharyngitis Acute tonsillitis Chronic tonsillitis Depression Acute pain of both ears Surgical History Surgical History History of hysteroscopy (07/31/24) suction D&C missed AB Hx of hemorrhoidectomy REUA, exc thrombosed external hemorrhoid on 08/03/23 H/O laparoscopy Family History Family History Other Diabetes mellitus Family history of arthritis Family history of cardiovascular disease Family history of malignant neoplasm Social History Social History Smoking status: Never smoker Second hand tobacco smoke exposure: Yes (FAMILY MEMBERS) Alcohol intake: never Substance use: current Substance use type: marijuana Other substance usage details: For anxiety every once in awhile Do You Feel Safe in your Home?: Yes Lack of Transportation: No Lack of Food: Never True Current Housing: I Have Housing Concerned About Future Housing: No Difficulty Paying Gas/Electric Bills: No Difficulty Paying for Meds: No Currently Unemployed: No Education: Grade School Difficulty w/ Childcare or Family Care: No Living arrangements: with family Occupation/Education: occupation 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 Gender identity (if verbalized by the patient): Female Sexual Orientation (if Verbalized by the Patient): Straight or Heterosexual Spiritual care concerns: No Exam Const: General: healthy appearing and no acute distress Nutritional Appearance: well nourished Orientation/consciousness: patient oriented x3 Limitations: no limitations HENMT: Head: normal to inspection Resp: Effort & Inspection: normal respiratory effort Auscultation: clear to auscultation bilaterally Cardio: Rate: regular rate Rhythm: regular rhythm GI: GI Palp: Yes Soft to palpation and Yes Tenderness to palpation present (GI) Auscultation: normal bowel sounds : General: Yes bladder normal to palpation Urinary Catheter: Urinary Catheter: patent and draining Back/Spine/Pelvis: Back: CVA tenderness Skin: General skin exam: normal color Rashes: no rashes Neuro: General: patient oriented x3 Course Course Emergency Course: Patient received pain medication and patient symptoms of flank and abdominal pain have currently resolved, patient had a CT scan which shows no evident etiology for patient's current abdominal pain UA shows 6 to 10 red blood cells otherwise no urinary tract infection. Vital Signs Vital signs: Vital Signs Temperature 36.6 C 08/21/24 12:42 Pulse Rate 59 L 08/21/24 12:42 Respiratory Rate 17 08/21/24 12:42 Blood Pressure 149/75 H 08/21/24 12:42 Pulse Oximetry 100 08/21/24 12:42 Oxygen Delivery Room Air 08/21/24 12:42 Temperature 36.6 C 08/21/24 12:42 Pulse Rate 59 L 08/21/24 12:42 Respiratory Rate 17 08/21/24 12:42 Blood Pressure 149/75 H 08/21/24 12:42 Pulse Oximetry 100 08/21/24 12:42 Oxygen Delivery Room Air 08/21/24 12:42 MDM - Abdominal Pain Lab Data 08/21/24 13:10 02/06/25 13:10 Labs: Lab Results 08/21/24 Range/Units 13:10 WBC 5.3 (4.8-10.8) K/mm3 RBC 4.39 (4.20-5.40) M/mm3 Hgb 12.0 (12.0-15.0) g/dL Hct 37.8 (35.0-49.0) % MCV 86.1 (78.0-102.0) fL MCH 27.3 (27.0-31.0) pg MCHC 31.7 L (32-36) g/dL RDW 15.4 H (11.6-14.4) % Plt Count 320 (150-420) K/mm3 MPV 10.5 (9.2-11.8) fl Immature Gran % (Auto) 0.4 H (0.0-0.0) % Neut % (Auto) 58.0 (50.0-70.0) % Lymph % (Auto) 33.1 (18.0-42.0) % [place] % (Auto) 5.5 (2.0-11.0) % Eos % (Auto) 2.1 (1.0-6.0) % Baso % (Auto) 0.9 (0.0-1.0) % Lymph # (Auto) 1.76 (1.10-4.50) K/mm3 [place] # (Auto) 0.29 (0.10-0.90) K/mm3 Eos # (Auto) 0.11 (0.02-0.50) K/mm3 Baso # (Auto) 0.05 (0.00-0.10) K/mm3 Abs Immat Gran (auto) 0.02 H (0.00-0.00) K/mm3 Absolute Neuts (auto) 3.09 (1.70-7.20) K/mm3 Absolute Nucleated RBC 0.00 (0.00-0.00) K/mm3 Nucleated RBC % 0.0 (0-0.0) % PT 11.1 (9.50-12.1) Seconds INR 1.0 APTT 29.3 (23.9-30.70) Sec Sodium 140 (136-145) mmol/L Potassium 3.6 (3.5-5.1) mmol/L Chloride 104 (98-108) mmol/L Carbon Dioxide 24 (21-32) mmol/L Anion Gap 12 (4-12) mmol/L BUN 10 (7-18) mg/dL Creatinine 0.91 (0.55-1.02) mg/dL Estim Creat Clear Calc 60 ml/min Estimated GFR > 60 (59 - ) Glucose 105 H (70-99) mg/dL Calculated Osmolality 289 (285-295) mOsm/kg Lactic Acid 2.0 (0.4-2.0) mmol/L Calcium 9.3 (8.5-10.1) mg/dL Total Bilirubin 0.6 (0.00-1.00) mg/dL AST 10 L (15-37) U/L ALT 10 L (14-59) U/L Alkaline Phosphatase 85 (46-116) U/L Total Protein 7.4 (6.4-8.2) g/dL Albumin 4.2 (3.4-5.0) g/dL Urine Color Light yellow (Yellow) Urine Appearance Clear (Clear) Urine pH 6.0 (5.0-8.0) Ur Specific [place] >= 1.030 H (1.010-1.020) Urine Protein Trace H (Negative) Urine Glucose (UA) Negative (Negative) Urine Ketones Negative (Negative) Ur Blood (Man) 2+ H (Negative) Urine Nitrate Negative (Negative) Urine Bilirubin Negative (Negative) Urine Urobilinogen 0.2 (0.2-1.0) mg/dL Leukocyte Esterase Rfl Negative (Negative) NISA/UL Urine RBC 6-10 H (0-2) /hpf Urine WBC None seen (0-3) /hpf Ur Squamous Epith Cells Moderate H (Few) /hpf Urine Bacteria Trace (None) /hpf Urine Test Positive Imaging Data Radiologist's impression: ITS Impressions Abdomen/Pelvis CT 08/21/24 14:19 IMPRESSION: 1. No etiology for the patient's symptoms. Critical Care Time Critical Care Time Critical Care Time: No Discharge Plan Discharge Clinical Impression: Abdominal pain Qualifiers: Abdominal location: generalized Qualified Code(s): R10.84 - Generalized abdominal pain Patient Disposition: Home, Self-Care Condition: Stable Instructions: Antibiotic Form, Abdominal Pain (ED) Additional Instructions: Advised Tylenol as needed for pain and take medicine as prescribed follow with primary if symptoms persist or worsen. Patient Language: Maltese Prescriptions: New ondansetron 4 mg tablet,disintegrating 4 mg PO Q6H PRN (Reason: nausea and vomiting) Qty: 14 0RF No Action vit-iron fum-folic ac 65 mg iron- 1 mg tablet 1 tablet PO DAILY Follow-up/Referrals: Manuel Mendoza MD [Primary Care Provider] - Time of Disposition: 14:50
[2024-08-21 15:00] VITALS: BP 103/66; PULSE 60; RESP 17; TEMP 36.6; O2SAT 98
--- NOTE | 2024-08-23 13:48 | PC.NURSE ---
preliminary blood culture no growth
--- NOTE | 2024-08-24 14:17 | ED.GENADULT ---
HPI - General Adult General Chief complaint: Urogenital-Female Stated complaint: left flank pain Time Seen by Provider: 08/21/24 12:43 Source: patient and family Mode of arrival: ambulatory Limitations: no limitations History of Present Illness HPI narrative: Devin is a 24 with a PMH of kidney stones and a miscarriage with DNC a couple weeks ago that presented to the ED with left flank pain. She had it earlier in the week and was evaluated here with no cause found. However, she woke up in severe pain in her left flank this morning. She is urinating in small amounts but no hematuria or fevers. No CP or dyspnea. Related Data Home Medications ?Medication ?Instructions ?Recorded ?Confirmed ?Last Taken ?Type vitamins-iron fumarate 65 1 tablet PO DAILY 07/01/24 08/18/24 07/30/24 History mg iron-folic acid 1 mg tablet Allergies Allergy/AdvReac Type Severity Reaction Status Date / Time cephalexin AdvReac Severe Vomiting Verified 08/21/24 12:49 Review of Systems Review of Systems: All systems reviewed & are unremarkable except as noted in HPI and below PMFSH Past Medical History Medical History Lightheadedness Vaginal discharge Normal endoscopy Encounter for screening colonoscopy for [id number] patient Borderline personality disorder PTSD (post-traumatic stress disorder) Irritable bowel syndrome with diarrhea Abdominal pain Nausea and vomiting Anxiety GERD (gastroesophageal reflux disease) Asthma Headache Pharyngitis Acute tonsillitis Chronic tonsillitis Depression Acute pain of both ears Surgical History Surgical History History of hysteroscopy (07/31/24) suction D&C missed AB Hx of hemorrhoidectomy REUA, exc thrombosed external hemorrhoid on 08/03/23 H/O laparoscopy Family History Family History Other Diabetes mellitus Family history of arthritis Family history of cardiovascular disease Family history of malignant neoplasm Social History Social History Smoking status: Never smoker Second hand tobacco smoke exposure: Yes (FAMILY MEMBERS) Alcohol intake: never Substance use: current Substance use type: marijuana Other substance usage details: For anxiety every once in awhile Do You Feel Safe in your Home?: Yes Lack of Transportation: No Lack of Food: Never True Current Housing: I Have Housing Concerned About Future Housing: No Difficulty Paying Gas/Electric Bills: No Difficulty Paying for Meds: No Currently Unemployed: No Education: Grade School Difficulty w/ Childcare or Family Care: No Living arrangements: with family Occupation/Education: occupation 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 Gender identity (if verbalized by the patient): Female Sexual Orientation (if Verbalized by the Patient): Straight or Heterosexual Spiritual care concerns: No Exam Const: General: cooperative, well developed, alert, awake and Physically active Orientation/consciousness: oriented to person, oriented to place and oriented to time Other: was holding left side writhing in pain HENMT: Head: normal to inspection, normocephalic and atraumatic Ears: hearing grossly normal bilaterally and external ears normal Face/Nose/Sinus: Normal external nose present Eyes: General: appearance normal, both eyes and all related structures Periorbital: periorbital findings normal Sclera: sclerae normal Pupils: Equal, round and reactive pupils present Neck: Neck: normal visual inspection Chest: Chest palpation & inspection: normal inspection of the chest Resp: Effort & Inspection: normal respiratory effort, able to speak in complete sentences and no respiratory distress Auscultation: clear to auscultation bilaterally Cardio: Jugular venous distension: no JVD Rate: regular rate Rhythm: regular rhythm GI: Inspection: normal to inspection GI Palp: Yes Soft to palpation Auscultation: normal bowel sounds Skin: General skin exam: normal color and no rashes or lesions noted Neuro: General: oriented to person, oriented to place and oriented to time Cranial nerves: Yes Equal, round and reactive pupils present Extrem: General: normal to inspection Course Vital Signs Vital signs: Vital Signs Temperature 97.8 F 08/21/24 12:42 Pulse Rate 59 L 08/21/24 12:42 Respiratory Rate 17 08/21/24 12:42 Blood Pressure 149/75 H 08/21/24 12:42 Pulse Oximetry 100 08/21/24 12:42 Oxygen Delivery Room Air 08/21/24 12:42 Temperature 98 F 08/21/24 15:00 Pulse Rate 60 08/21/24 15:00 Respiratory Rate 17 08/21/24 15:00 Blood Pressure 103/66 08/21/24 15:00 Pulse Oximetry 98 08/21/24 15:00 Oxygen Delivery Room Air 08/21/24 15:00 Medical Decision Making Vital Signs Vital Signs: Vital Signs Temperature 97.8 F 08/21/24 12:42 Pulse Rate 59 L 08/21/24 12:42 Respiratory Rate 17 08/21/24 12:42 Blood Pressure 149/75 H 08/21/24 12:42 Pulse Oximetry 100 08/21/24 12:42 Oxygen Delivery Room Air 08/21/24 12:42 Temperature 98 F 08/21/24 15:00 Pulse Rate 60 08/21/24 15:00 Respiratory Rate 17 08/21/24 15:00 Blood Pressure 103/66 08/21/24 15:00 Pulse Oximetry 98 08/21/24 15:00 Oxygen Delivery Room Air 08/21/24 15:00 Lab Data 08/21/24 13:10 08/21/24 13:10 Labs: Lab Results 08/21/24 Range/Units 13:10 WBC 5.3 (4.8-10.8) K/mm3 RBC 4.39 (4.20-5.40) M/mm3 Hgb 12.0 (12.0-15.0) g/dL Hct 37.8 (35.0-49.0) % MCV 86.1 (78.0-102.0) fL MCH 27.3 (27.0-31.0) pg MCHC 31.7 L (32-36) g/dL RDW 15.4 H (11.6-14.4) % Plt Count 320 (150-420) K/mm3 MPV 10.5 (9.2-11.8) fl Immature Gran % (Auto) 0.4 H (0.0-0.0) % Neut % (Auto) 58.0 (50.0-70.0) % Lymph % (Auto) 33.1 (18.0-42.0) % [place] % (Auto) 5.5 (2.0-11.0) % Eos % (Auto) 2.1 (1.0-6.0) % Baso % (Auto) 0.9 (0.0-1.0) % Lymph # (Auto) 1.76 (1.10-4.50) K/mm3 [place] # (Auto) 0.29 (0.10-0.90) K/mm3 Eos # (Auto) 0.11 (0.02-0.50) K/mm3 Baso # (Auto) 0.05 (0.00-0.10) K/mm3 Abs Immat Gran (auto) 0.02 H (0.00-0.00) K/mm3 Absolute Neuts (auto) 3.09 (1.70-7.20) K/mm3 Absolute Nucleated RBC 0.00 (0.00-0.00) K/mm3 Nucleated RBC % 0.0 (0-0.0) % PT 11.1 (9.50-12.1) Seconds INR 1.0 APTT 29.3 (23.9-30.70) Sec Sodium 140 (136-145) mmol/L Potassium 3.6 (3.5-5.1) mmol/L Chloride 104 (98-108) mmol/L Carbon Dioxide 24 (21-32) mmol/L Anion Gap 12 (4-12) mmol/L BUN 10 (7-18) mg/dL Creatinine 0.91 (0.55-1.02) mg/dL Estim Creat Clear Calc 60 ml/min Estimated GFR > 60 (59 - ) Glucose 105 H (70-99) mg/dL Calculated Osmolality 289 (285-295) mOsm/kg Lactic Acid 2.0 (0.4-2.0) mmol/L Calcium 9.3 (8.5-10.1) mg/dL Total Bilirubin 0.6 (0.00-1.00) mg/dL AST 10 L (15-37) U/L ALT 10 L (14-59) U/L Alkaline Phosphatase 85 (46-116) U/L Total Protein 7.4 (6.4-8.2) g/dL Albumin 4.2 (3.4-5.0) g/dL Urine Color Light yellow (Yellow) Urine Appearance Clear (Clear) Urine pH 6.0 (5.0-8.0) Ur Specific [employer] >= 1.030 H (1.010-1.020) Urine Protein Trace H (Negative) Urine Glucose (UA) Negative (Negative) Urine Ketones Negative (Negative) Ur Blood (Man) 2+ H (Negative) Urine Nitrate Negative (Negative) Urine Bilirubin Negative (Negative) Urine Urobilinogen 0.2 (0.2-1.0) mg/dL Leukocyte Esterase Rfl Negative (Negative) NISA/UL Urine RBC 6-10 H (0-2) /hpf Urine WBC None seen (0-3) /hpf Ur Squamous Epith Cells Moderate H (Few) /hpf Urine Bacteria Trace (None) /hpf Urine Test Positive Discharge Plan Discharge Clinical Impression: Abdominal pain Qualifiers: Abdominal location: generalized Qualified Code(s): R10.84 - Generalized abdominal pain Patient Disposition: Home, Self-Care Condition: Stable Instructions: Antibiotic Form, Abdominal Pain (ED) Additional Instructions: Advised Tylenol as needed for pain and take medicine as prescribed follow with primary if symptoms persist or worsen. Patient Language: Ukrainian Prescriptions: New ondansetron 4 mg tablet,disintegrating 4 mg PO Q6H PRN (Reason: nausea and vomiting) Qty: 14 0RF No Action vit-iron fum-folic ac 65 mg iron- 1 mg tablet 1 tablet PO DAILY Follow-up/Referrals: Manuel Mendoza MD [Primary Care Provider] - Time of Disposition: 14:50
--- NOTE | 2024-08-27 12:44 | PC.NURSE ---
FINAL BLOOD CULTURE RESULTS X2: NO GROWTH AFTER 5 DAYS
== END 2024-08-21 15:00 | disposition home or self-care (01) ==
PROVIDERS: Emergency Provider Emergency Medicine; PCP Family Medicine
DX: R10.84 Generalized abdominal pain (principal)
CPT/HCPCS: 36415; 74177; 80053; 81001; 81025; 83605; 85025; 85610; 85730; 87040; 93005; 96361; 96374; 96375; 99284; J2405; J7030; Q9967

== ENCOUNTER 2024-08-24 14:10 | Emergency (ER) | payer BC, MEDICAID, SELFPAY ==
[2024-08-24] VITALS (17 sets, daily range): BP systolic 91–159; BP diastolic 54–89; PULSE 48–67; RESP 10–21; TEMP 36.1–36.8; O2SAT 94–100
--- NOTE | ~2024-08-24 | CT_ITS ---
CLINICAL INDICATION: Left flank pain COMPARISON: 08/21/2024. TECHNIQUE: Multiple contiguous axial images of the abdomen and pelvis were performed following the ad ministration of with 100 mL Omnipaque-350 intravenous contrast The dose-length product (DLP) was 173.87 mGy-cm. Automated exposure control and iterative reconstruction technique were employed. FINDINGS/OBSERVATIONS: Visualized lower thorax: The bilateral lung bases are clear. The heart is of normal size, without pericardial effusion. Liver: The liver enhances homogeneously and is not enlarged. Gallbladder and biliary system: The gallbladder is only minimally distended, and otherwise unremarkable. Pancreas: The pancreas enhances homogeneously without ductal dilatation. Spleen: The spleen enhances homogeneously and is not enlarged measuring 8 cm in longitudinal dimension. Kidneys: Redemonstration of a 4 mm nonobstructing calculus within the left kidney. The bilateral kidneys enhance symmetrically without hydronephrosis or additional renal calculi. Adrenal glands: Unremarkable. Gastrointestinal tract: Moderate fecal stasis. The terminal ileum (located within the left lower quadrant) is fluid-filled and distended, likely sec ondary to adjacent inflammation from the uterus Appendix: The air-filled appendix is of normal caliber (axial series, image 126). Vasculature: Unremarkable. Lymph nodes: No pathologically enlarged or morphologically suspicious lymph nodes within the retroperitoneum or at the root of the mesentery. Pelvic structures: The bladder is decompressed. The uterus is markedly enlarged and hyperemic, consistent with patient's history. Redemonstration of a 2 cm left ovarian cyst for which no further follow-up is needed. Body wall and musculoskeletal: No significant degenerative disease within the lower thoracic or lumbosacral spine. IMPRESSION: Nonobstructing left renal calculus. Marked inflammatory response within the uterus, consistent with patient's history. The terminal ileum, located within the left lower quadrant is fluid-filled and distended likely secon malcolm to adjacent inflammation from the uterus. No additional acute findings, as detailed above Reviewed, dictated and finalized at location A. [facility] IMPRESSION: Nonobstructing left renal calculus. Marked inflammatory response within the uterus, consistent with patient's histo ry. The terminal ileum, located within the left lower quadrant is fluid-filled and distended likely secondary to adjacent inflammation from the uterus. No additional acute findings, as detailed above
--- OUTSIDE RECORDS SUMMARY | 2024-08-24 14:12 | XMS_ITS | Patient Health Summary ---
Author Organization [email or web address] Address [address] [place] [address] Care Team Providers Care Jewel Corner Brushing Machine Operator Name Role Phone Manuel Mendoza MD Primary Care Provider [phone] Note [address] [facility],non-owned Affiliates and Associated Physician Practices is amultiple site organization consisting of ambulatory clinics and hospital sitesin [place], [place], [place] and [place]. This disclosure is being madepursuant to the Care Everywhere program and may not contain all information available regarding this patient. Last updated 18.[email or web address] Allergies No known active allergies Medications * [...] fluticasone propionate (FLONASE) 50 MCG/ACT nasal spray [place] 2 Sprays into each nostril once daily [...] 60 MIN (04/19/2015 10:28 PM CDT) Narrative [facility] - 04/21/2015 8:31 AM CDT No Dictation. Wes MCCOY Performing Organization Address City/State/[facility] Co de Phone Number [facility] [address] [phone] * XR FOREARM 2 VW LEFT (04/19/2015 [...] * XR FINGER(S) RIGHT (06/17/2013 10:46 AM SOFT TILE SETTER) Anatomical Region Laterality Modality Wrist / Hand, Upper Extremity Ra diographic Imaging 06/17/2013 10:5 4 AM SOFT TILE SETTER Impressions 06/17/2013 11:43 AM SOFT TILE SETTER Impression Subtle deformity with periosteal reaction at the distal aspect of the fifth middle phalanx, consistent with healing fracture. D: Nilson Chamorro MD. Arnol Martin, have personally reviewed the images and I agree with this report. Narrative 06/17/2013 11:43 AM SOFT TILE SETTER Exam: Right fifth digit, 3 views Exam [...] MD DIAGNOSTIC IMAGING O RDERABLES Care Teams Jewel Corner Brushing Machine Operator Relationship Specialty Start Date End Date Manuel Mendoza MD [address] [place] [address] PCP - General 03/14/21
--- OUTSIDE RECORDS SUMMARY | 2024-08-24 14:12 | XMS_ITS | Encounter Summary ---
Author Organization [facility] Address [address] [place] [address] Care Team Providers Care Salt Manager Name Role Phone Manuel Mendoza MD Primary Care Provider [phone] Reason for Visit * Reason Onset Date Comments Case Management 03/27/2016 BOEJOSE HASSAN DO S [id number] Encounter Details Date Type Department Care Team (Late st Contact Info) Description 03/27/2016 Patient Outreach [facility] Outpatient Care Management - [place] [address] [place] [address] Catarino Wyman, [facility] [address] [place] [address] Case Management (ROYAL WAIVER DOS [id number] ) Social History Tobacco Use Types Packs/Day Years Used Date Smoking Tobacco: Never Assessed Comments Unknown Sex and Gender Information Value Date Recorded Sex Assigned at Not on file Legal Sex Female 5:19 PM NOC ANALYST Gender Identity Not on file Sexual Orientation Not on file documented as of this encounter Plan of Treatment Not on file documented as of this encounter Visit Diagnoses Not on filedocumented in this encounter Care Teams Salt Manager Relationship Specialty Start Date End Date Manuel Mendoza MD [address] [facility] [address] [place] [id number] PCP - General Family Practice 08/02/18 documented as of this encounter
--- OUTSIDE RECORDS SUMMARY | 2024-08-24 14:13 | XMS_ITS | Clinical Summary ---
Author Organization [facility] Address [address] [place] [address] Care Team Providers Care Automotive Electrician Helper Name Role Phone Manuel Mendoza MD Primary Care Provider [phone] Allergies No known active allergies Medications raNITIdine (ZANTAC) 75 mg Tablet Take 75 mg by mouth daily. Active diphenhydrAMINE (BENADRYL) 25 mg tablet Take 12.5 mg by mouth nightly as needed for Allergies. Active fluticasone (FLONASE) 50 mcg/spray [place], Suspension Administer 2 Sprays in each nostril [...] on file Legal Sex Female 5:19 PM FUNERAL DIRECTOR/EMBALMER Gender Identity Not on file Sexual Orientation [...] age to complete this topic Care Teams Automotive Electrician Helper Relationship Specialty Start Date End Date Manuel Mendoza MD [address] [facility] [address] [place] [id number] PCP - General Family Practice 08/02/18
--- OUTSIDE RECORDS SUMMARY | 2024-08-24 14:13 | XMS_ITS | Clinical Summary ---
Author Organization [facility] [employer] Address [address] [place] [address] Care Team Providers Care Receiver/Laborer Name Role Phone Manuel Mendoza MD Primary Care Provider [phone] Source Comments [facility] [employer],non-owned Affiliates and Associated Physician Practices is amultiple site organization consisting of ambulatory clinics and hospital sitesin [place], [place], [place] and [place]. This disclosure is being madepursuant to the Care Everywhere program and may not contain all information available regarding this patient. Last updated 18.[facility] [employer] Allergies No known active allergies Medications * [...] fluticasone propionate (FLONASE) 50 MCG/ACT nasal spray [place] 2 Sprays into each nostril once daily [...] age to complete this topic Care Teams Receiver/Laborer Relationship Specialty Start Date End Date Manuel Mendoza MD [address] [place] [address] PCP - General 03/14/21
--- OUTSIDE RECORDS SUMMARY | 2024-08-24 14:13 | XMS_ITS | Referral Summary ---
Author Organization [facility] [employer] Address [address] [facility] [place] [address] Care Team Providers Care Gaming Dealer Name Role Phone Manuel Mendoza MD Primary Care Provider Source Comments [facility],non-owned Affiliates and Associated Physician Practices is amultiple site organization consisting of ambulatory clinics and hospital sitesin [place] and [place]. This disclosure is being madepursuant to the Care Everywhere program and may not contain all information available regarding this patient. Last updated 18.[facility] [employer] Allergies No known active allergies Medications * [...] fluticasone propionate (FLONASE) 50 MCG/ACT nasal spray [place] 2 Sprays into each nostril once daily [...] of Treatment Not on file Care Teams Gaming Dealer Relationship Specialty Start Date End Date Manuel Mendoza MD [address] [place] [address] PCP - General 03/14/21
--- NOTE | 2024-08-24 14:23 | ED_ITS ---
HPI - General Adult General Chief complaint: Abdominal Pain Stated complaint: ABDOMINAL PAIN Devin is a 24 with a PMH of kidney stones and a miscarriage with DNC a couple weeks ago that presented to the ED with left flank pain. She had it earlier in the week and was evaluated here with no cause found. However, she woke up in severe pain in her left flank this morning. She is urinating in small amounts but no hematuria or fevers. No CP or dyspnea. Related Data Home Medications ?Medication ?Instructions ?Recorded ?Confirmed ?Last Taken ?Type vitamins-iron fumarate 65 1 tablet PO DAILY 07/01/24 08/18/24 07/30/24 History mg iron-folic acid 1 mg tablet Allergies Allergy/AdvReac Type Severity Reaction Status Date / Time cephalexin AdvReac Severe Vomiting Verified 08/21/24 12:49 Review of Systems 2 Review of Systems: All systems reviewed & are unremarkable except as noted in HPI and below PMFSH Past Medical History Medical History Lightheadedness Vaginal discharge Normal endoscopy Encounter for screening colonoscopy for [id number] patient Borderline personality disorder PTSD (post-traumatic stress disorder) Irritable bowel syndrome with diarrhea Abdominal pain Nausea and vomiting Anxiety GERD (gastroesophageal reflux disease) Asthma Headache Pharyngitis Acute tonsillitis Chronic tonsillitis Depression Acute pain of both ears Surgical History Surgical History History of hysteroscopy (07/31/24) suction D&C missed AB Hx of hemorrhoidectomy REUA, exc thrombosed external hemorrhoid on 08/03/23 H/O laparoscopy Family History Family History Other Diabetes mellitus Family history of arthritis Family history of cardiovascular disease Family history of malignant neoplasm Social History Social History Smoking status: Never smoker Second hand tobacco smoke exposure: Yes (FAMILY MEMBERS) Alcohol intake: never Substance use: current Substance use type: marijuana Other substance usage details: For anxiety every once in awhile Do You Feel Safe in your Home?: Yes Lack of Transportation: No Lack of Food: Never True Current Housing: I Have Housing Concerned About Future Housing: No Difficulty Paying Gas/Electric Bills: No Difficulty Paying for Meds: No Currently Unemployed: No Education: Grade School Difficulty w/ Childcare or Family Care: No Living arrangements: with family 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/Education: 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 Gender identity (if verbalized by the patient): Female Sexual Orientation (if Verbalized by the Patient): Straight or Heterosexual Spiritual care concerns: No Exam 2 Const: General: well developed, alert, awake and Physically active O rientation/consciousness: oriented to person, oriented to place and oriented to time Other: was holding left side writhing in pain HENMT: Head: normal to inspection, normocephalic and atraumatic Ears: h earing grossly normal bilaterally and external ears normal Face/Nose/Sinus: N ormal external nose present Eyes: General: appearance normal, both eyes and all related structures P eriorbital: periorbital findings normal Sclera: sclerae normal Pupils: E qual, round and reactive pupils present Neck: Neck: normal visual inspection Chest: Chest palpation & inspection: normal inspection of the chest Resp: Effort & Inspection: normal respiratory effort, able to speak in complete sentences and no respiratory distress Auscultation: clear to auscultation bilaterally Cardio: Jugular venous distension: no JVD Rate: regular rate Rhythm: r egular rhythm GI: Inspection: normal to inspection GI Palp: Yes Soft to palpation A uscultation: normal bowel sounds Skin: General skin exam: normal color and no rashes or lesions noted Neuro: General: oriented to person, oriented to place and oriented to time Cranial nerves: Yes Equal, round and reactive pupils present Extrem: General: normal to inspection Course Course Emergency Course: Ordered labs, CT scan, morphine and zofran. Labs showed leukocytosis, mild hypokalemia CLINICAL INDICATION: Left flank pain COMPARISON: 08/21/2024. TECHNIQUE: Multiple contiguous axial images of the abdomen and pelvis were performed following the administration of with 100 mL Omnipaque-350 intravenous contrast The dose-length product (DLP) was 173.87 mGy-cm. Automated exposure control and iterative reconstruction technique were employed. FINDINGS/OBSERVATIONS: Visualized lower thorax: The bilateral lung bases are clear. The heart is of normal size, without pericardial effusion. Liver: The liver enhances homogeneously and is not enlarged. Gallbladder and biliary system: The gallbladder is only minimally distended, and otherwise unremarkable. Pancreas: The pancreas enhances homogeneously without ductal dilatation. Spleen: The spleen enhances homogeneously and is not enlarged measuring 8 cm in longitudinal dimension. Kidneys: Redemonstration of a 4 mm nonobstructing calculus within the left kidney. The bilateral kidneys enhance symmetrically without hydronephrosis or additional renal calculi. Adrenal glands: Unremarkable. Gastrointestinal tract: Moderate fecal stasis. The terminal ileum (located within the left lower quadrant) is fluid-filled and distended, likely secondary to adjacent inflammation from the uterus Appendix: The air-filled appendix is of normal caliber (axial series, image 126). Vasculature: Unremarkable. Lymph nodes: No pathologically enlarged or morphologically suspicious lymph nodes within the retroperitoneum or at the root of the mesentery. Pelvic structures: The bladder is decompressed. The uterus is markedly enlarged and hyperemic, consistent with patient's history. Redemonstration of a 2 cm left ovarian cyst for which no further follow-up is needed. Body wall and musculoskeletal: No significant degenerative disease within the lower thoracic or lumbosacral spine. IMPRESSION: Nonobstructing left renal calculus. Marked inflammatory response within the uterus, consistent with patient's history. The terminal ileum, located within the left lower quadrant is fluid-filled and distended likely secondary to adjacent inflammation from the uterus. No additional acute findings, as detailed above Pain was improved with the morphine. I spoke with Dr. Suggs who does not believe this is related to her DNC. He recommended for her to f/u in the office and antibiotics. Abdominal Pain DDX includes enteritis vs endometritis vs UTI vs endometriosis vs other. Vital Signs Vital signs: Vital Signs Temperature 96.9 F L 08/24/24 14:13 Pulse Rate 55 L 08/24/24 14:13 Respiratory Rate 18 08/24/24 14:13 Blood Pressure 159/89 H 08/24/24 14:13 Pulse Oximetry 100 08/24/24 14:13 Oxygen Delivery Room Air 08/24/24 14:13 Temperature 98.3 F 08/24/24 16:45 Pulse Rate 60 08/24/24 18:01 Respiratory Rate 20 08/24/24 18:01 Blood Pressure 92/56 L 08/24/24 18:01 Pulse Oximetry 100 08/24/24 18:01 Oxygen Delivery Room Air 08/24/24 18:01 Medical Decision Making Vital Signs Vital Signs: Vital Signs Temperature 96.9 F L 08/24/24 14:13 Pulse Rate 55 L 08/24/24 14:13 Respiratory Rate 18 08/24/24 14:13 Blood Pressure 159/89 H 08/24/24 14:13 Pulse Oximetry 100 08/24/24 14:13 Oxygen Delivery Room Air 08/24/24 14:13 Temperature 98.3 F 08/24/24 16:45 Pulse Rate 60 08/24/24 18:01 Respiratory Rate 20 08/24/24 18:01 Blood Pressure 92/56 L 08/24/24 18:01 Pulse Oximetry 100 08/24/24 18:01 Oxygen Delivery Room Air 08/24/24 18:01 Lab Data 08/24/24 14:50 08/24/24 14:50 Labs: Lab Results 08/24/24 Range/Units 14:50 WBC 15.8 H (4.8-10.8) K/mm3 RBC 4.56 (4.20-5.40) M/mm3 Hgb 12.6 (12.0-15.0) g/dL Hct 39.8 (35.0-49.0) % MCV 87.3 (78.0-102.0) fL MCH 27.6 (27.0-31.0) pg MCHC 31.7 L (32-36) g/dL RDW 15.5 H (11.6-14.4) % Plt Count 355 (150-420) K/mm3 MPV 10.4 (9.2-11.8) fl Immature Gran % (Auto) 0.5 H (0.0-0.0) % Neut % (Auto) 86.1 H (50.0-70.0) % Lymph % (Auto) 9.1 L (18.0-42.0) % [place] % (Auto) 3.4 (2.0-11.0) % Eos % (Auto) 0.4 L (1.0-6.0) % Baso % (Auto) 0.5 (0.0-1.0) % Lymph # (Auto) 1.43 (1.10-4.50) K/mm3 [place] # (Auto) 0.54 (0.10-0.90) K/mm3 Eos # (Auto) 0.06 (0.02-0.50) K/mm3 Baso # (Auto) 0.08 (0.00-0.10) K/mm3 Abs Immat Gran (auto) 0.08 H (0.00-0.00) K/mm3 Absolute Neuts (auto) 13.58 H (1.70-7.20) K/mm3 Absolute Nucleated RBC 0.00 (0.00-0.00) K/mm3 Nucleated RBC % 0.0 (0-0.0) % APTT 25.0 (23.9-30.70) Sec Sodium 139 (136-145) mmol/L Potassium 3.3 L (3.5-5.1) mmol/L Chloride 103 (98-108) mmol/L Carbon Dioxide 21 (21-32) mmol/L Anion Gap 15 H (4-12) mmol/L BUN 7 (7-18) mg/dL Creatinine 1.02 (0.55-1.02) mg/dL Estim Creat Clear Calc 58 ml/min Estimated GFR > 60 (59 - ) Glucose 146 H (70-99) mg/dL Calculated Osmolality 289 (285-295) mOsm/kg Lactic Acid 2.5 H (0.4-2.0) mmol/L Calcium 9.4 (8.5-10.1) mg/dL Total Bilirubin 0.7 (0.00-1.00) mg/dL AST 13 L (15-37) U/L ALT 14 (14-59) U/L Alkaline Phosphatase 81 (46-116) U/L Total Protein 7.8 (6.4-8.2) g/dL Albumin 4.7 (3.4-5.0) g/dL Lipase 23 (16-77) U/L Discharge Plan Discharge Clinical Impression: Abdominal pain Patient Disposition: Home, Self-Care Condition: Stable Instructions: Abdominal Pain (ED) Patient Language: Tajik Prescriptions: New ondansetron 4 mg tablet,disintegrating 4 mg PO Q8H PRN (Reason: nausea and vomiting) Qty: 10 0RF hydrocodone-acetaminophen 5-325 mg tablet 1 tablet PO Q8H PRN (Reason: pain) Qty: 10 0RF amoxicillin-pot clavulanate 875-125 mg tablet 1 tablet PO Q12H Qty: 10 0RF metronidazole 250 mg tablet 250 mg PO BID Qty: 10 0RF No Action ondansetron 4 mg tablet,disintegrating 4 mg PO Q6H PRN (Reason: nausea and vomiting) Qty: 14 0RF vit-iron fum-folic ac 65 mg iron- 1 mg tablet 1 tablet PO DAILY Follow-up/Referrals: UNKNOWN,DOCTOR [Non-Staff] -
[2024-08-24] MEDS: MORPHINE SULFATE (*CRX) 4 MG/ML INJ IV PUSH (14:27)
[2024-08-24] MEDS: ONDANSETRON INJ 4 MG/2 ML VIAL IV PUSH (14:27)
--- OUTSIDE RECORDS SUMMARY | 2024-08-24 14:43 | XMS_ITS | Encounter Summary ---
[facility] Organization [facility] Address [address] [place] [address] Care Team Providers Care Corporate Development Officer Name Role Phone Manuel Mendoza MD Primary Care Provider [phone] Reason for Visit * Reason Onset Date Comments Case Management 03/27/2016 BOEJOSE HASSAN DO S [id number] Encounter Details Date Type Department Care Team (Late st Contact Info) Description 03/27/2016 Patient Outreach [facility] - [place] [address] [place] [address] Catarino Wyman, [facility] [address] [place] [address] Case Management (ROYAL WAIVER DOS [id number] ) Social History Tobacco Use Types Packs/Day Years Used Date Smoking Tobacco: Never Assessed Comments Unknown Sex and Gender Information Value Date Recorded Sex Assigned at Not on file Legal Sex Female 5:19 PM [employer] Gender Identity Not on file Sexual Orientation Not on file documented as of this encounter Plan of Treatment Not on file documented as of this encounter Visit Diagnoses Not on filedocumented in this encounter Care Teams Corporate Development Officer Relationship Specialty Start Date End Date Manuel Mendoza MD [address] [facility] [address] [place] [id number] PCP - General Family Practice 08/02/18 documented as of this encounter
--- OUTSIDE RECORDS SUMMARY | 2024-08-24 14:43 | XMS_ITS | Clinical Summary ---
Author Organization [facility] Address [address] [place] [address] Care Team Providers Care Account Manager Forest Service Name Role Phone Manuel Mendoza MD Primary Care Provider [phone] Source Comments [facility],non-owned Affiliates and Associated Physician Practices is amultiple site organization consisting of ambulatory clinics and hospital sitesin [place], [place], [place] and [place]. This disclosure is being madepursuant to the Care Everywhere program and may not contain all information available regarding this patient. Last updated 18.[facility] Allergies No known active allergies Medications * [...] fluticasone propionate (FLONASE) 50 MCG/ACT nasal spray [place] 2 Sprays into each nostril once daily [...] age to complete this topic Care Teams Account Manager [employer] Relationship Specialty Start Date End Date Manuel Mendoza MD [address] [place] [address] PCP - General 03/14/21
--- OUTSIDE RECORDS SUMMARY | 2024-08-24 14:43 | XMS_ITS | Patient Health Summary ---
Author Organization [facility] [employer] Address [address] [facility] [place] [address] Care Team Providers Care Brick Paving Checker Name Role Phone Manuel Mendoza MD Primary Care Provider [phone] Note from [facility],non-owned Affiliates and Associated Physician Practices is amultiple site organization consisting of ambulatory clinics and hospital sitesin [place], [place], [place] and [place]. This disclosure is being madepursuant to the Care Everywhere program and may not contain all information available regarding this patient. Last updated 18.[facility] [employer] Allergies No known active allergies Medications * [...] fluticasone propionate (FLONASE) 50 MCG/ACT nasal spray [place] 2 Sprays into each nostril once daily [...] 60 MIN (04/19/2015 10:28 PM CDT) Narrative [facility] - 04/21/2015 8:31 AM CDT No Dictation. Wes MCCOY Performing Organization Address City/State/[facility] Co de Phone Number [facility] [address] [phone] * XR FOREARM 2 VW LEFT (04/19/2015 [...] * XR FINGER(S) RIGHT (06/17/2013 10:46 AM FOOD SUPERVISOR) Anatomical Region Laterality Modality Wrist / Hand, Upper Extremity Ra diographic Imaging 06/17/2013 10:5 4 AM FOOD SUPERVISOR Impressions 06/17/2013 11:43 AM FOOD SUPERVISOR Impression Subtle deformity with periosteal reaction at the distal aspect of the fifth middle phalanx, consistent with healing fracture. D: Nilson Chamorro MD. Arnol Martin, have personally reviewed the images and I agree with this report. Narrative 06/17/2013 11:43 AM FOOD SUPERVISOR Exam: Right fifth digit, 3 views Exam [...] MD DIAGNOSTIC IMAGING O RDERABLES Care Teams Brick Paving Checker Relationship Specialty Start Date End Date Manuel Mendoza MD [address] [place] [address] PCP - General 03/14/21
--- OUTSIDE RECORDS SUMMARY | 2024-08-24 14:43 | XMS_ITS | Clinical Summary ---
Author Organization [facility] Address [address] [place] [address] Care Team Providers Care Research Programmer Name Role Phone Manuel Mendoza MD Primary Care Provider [phone] Allergies No known active allergies Medications raNITIdine (ZANTAC) 75 mg Tablet Take 75 mg by mouth daily. Active diphenhydrAMINE (BENADRYL) 25 mg tablet Take 12.5 mg by mouth nightly as needed for Allergies. 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
--- OUTSIDE RECORDS SUMMARY | 2024-08-24 14:43 | XMS_ITS | Referral Summary ---
Author Organization [facility] [address] Address [address] [facility] [place] [address] Care Team Providers Care Car Packer Name Role Phone Manuel Mendoza MD Primary Care Provider [phone] Source Comments [facility],non-owned Affiliates and Associated Physician Practices is amultiple site organization consisting of ambulatory clinics and hospital sitesin [place], [place], [place] and [place]. This disclosure is being madepursuant to the Care Everywhere program and may not contain all information available regarding this patient. Last updated 18.[facility] [address] Allergies No known active allergies Medications * [...] fluticasone propionate (FLONASE) 50 MCG/ACT nasal spray [place] 2 Sprays into each nostril once daily [...] of Treatment Not on file Care Teams Car Packer Relationship Specialty Start Date End Date Manuel Mendoza MD [address] [place] [address] PCP - General 03/14/21
[2024-08-24 14:57] LABS: Basophils Absolute Auto 0.08 K/mm3 (0.00-0.10); Basophils Percent Auto 0.5 % (0.0-1.0); Eosinophils Absolute Auto 0.06 K/mm3 (0.02-0.50); Eosinophils Percent Auto 0.4 % (1.0-6.0); Hematocrit 39.8 % (35.0-49.0); Hemoglobin 12.6 g/dL (12.0-15.0); Immature Granulocyte Absolute 0.08 K/mm3 (0.00-0.00); Immature Granulocyte Percent A 0.5 % (0.0-0.0); Lymphocytes Absolute Auto 1.43 K/mm3 (1.10-4.50); Lymphocytes Percent Auto 9.1 % (18.0-42.0); Mean Corpuscular HGB Conc 31.7 g/dL (32-36); Mean Corpuscular Hemoglobin 27.6 pg (27.0-31.0); Mean Corpuscular Volume 87.3 fL (78.0-102.0); Mean Platelet Volume 10.4 fl (9.2-11.8); Monocytes Absolute Auto 0.54 K/mm3 (0.10-0.90); Monocytes Percent Auto 3.4 % (2.0-11.0); Neutrophils Absolute Auto 13.58 K/mm3 (1.70-7.20); Neutrophils Percent Auto 86.1 % (50.0-70.0); Platelet Count Result 355 K/mm3 (150-420); Red Blood Count 4.56 M/mm3 (4.20-5.40); Red Cell Distribution Width 15.5 % (11.6-14.4); White Blood Count 15.8 K/mm3 (4.8-10.8)
[2024-08-24 15:16] LABS: Alanine Aminotransferase 14 U/L (14-59); Albumin Level 4.7 g/dL (3.4-5.0); Alkaline Phosphatase 81 U/L (46-116); Anion Gap 15 mmol/L (4-12); Aspartate Amino Transferase 13 U/L (15-37); Bilirubin,Total 0.7 mg/dL (0.00-1.00); Blood Urea Nitrogen 7 mg/dL (7-18); Calcium 9.4 mg/dL (8.5-10.1); Carbon Dioxide 21 mmol/L (21-32); Chloride 103 mmol/L (98-108); Estimated CRCL calculation 58 ml/min; Estimated Glomerular Filt Rate > 60; Glucose 146 mg/dL (70-99); Lipase 23 U/L (16-77); Osmolality Calculated 289 mOsm/kg (285-295); Potassium 3.3 mmol/L (3.5-5.1); Sodium 139 mmol/L (136-145); Total Protein 7.8 g/dL (6.4-8.2)
[2024-08-24 15:19] LABS: Lactic Acid Reflex 2.5 mmol/L (0.4-2.0)
[2024-08-24] MEDS: SODIUM CHLORIDE 0.9% IV 1,000 ML 999 ML IV CONT (17:08)
[2024-08-24 17:54] LABS: Reflex Lactic Acid Yes or No Add Lactic
[2024-08-24] MEDS: metroNIDAZOLE 250 MG TABLET 500 MG PO (17:58)
[2024-08-24] MEDS: AMOXICILLIN/CLAVULANATE K 875-125 MG TAB 1 TABLET PO (17:58)
[2024-08-24] MEDS: ONDANSETRON HCL ODT 4 MG TABLET PO (17:58)
== END 2024-08-24 18:09 | disposition home or self-care (01) ==
PROVIDERS: Emergency Provider Family Medicine; PCP Family Medicine
DX: R10.9 Unspecified abdominal pain (principal)
CPT/HCPCS: 36415; 74177; 80053; 83605; 83690; 85025; 85730; 96361; 96374; 96375; 96376; 99284; A9270; J2270; J2405; J7030; Q9967

== ENCOUNTER 2024-08-27 15:48 | Outpatient (CLI) | payer BC, MEDICAID, SELFPAY ==
--- NOTE | ~2024-08-27 | US_ITS ---
EXAMINATION: US pelvic complete DATE: 08/27/2024 16:38 INDICATION: Pelvic and perineal pain TECHNIQUE: Multiple transabdominal and endovaginal sonographic images of the pelvis were obtained. COMPARISON: CT dated 08/24/2024 FINDINGS: The uterus measures 9.2 x 4.8 x 6.6 cm. The endometrial complex measures 3 mm in thickness. The righ t ovary measures 4.8 x 2.9 x 3.9 cm. The left ovary measures 3.2 x 3.1 x 2.9 cm. There are a few subc entimeter anechoic cysts/follicles at the right ovary. 2.8 cm dominant follicle at the left ovary. Va scular flow identified at both ovaries on color Doppler. There is small amount of likely physiologic anechoic free fluid in the pelvis. IMPRESSION: 1. Normal pelvic ultrasound. Reviewed, dictated and finalized at location A. CAL SOCIAL CONSULTANT
--- OUTSIDE RECORDS SUMMARY | 2024-08-27 15:53 | XMS_ITS | Referral Summary ---
Author Organization [facility] [employer] Address [address] [place] [address] Care Team Providers Care Food Mobile Driver Name Role Phone Manuel Mendoza MD Primary Care Provider [phone] Source Comments [facility] [employer] [facility] [employer],non-owned Affiliates and Associated Physician Practices is amultiple site organization consisting of ambulatory clinics and hospital sitesin [place], [place], [place] and [place]. This disclosure is being madepursuant to the Care Everywhere program and may not contain all information available regarding this patient. Last updated 18.[facility] [employer] [facility] Allergies No known active allergies Medications * [...] fluticasone propionate (FLONASE) 50 MCG/ACT nasal spray [place] 2 Sprays into each nostril once daily [...] of Treatment Not on file Care Teams Food Mobile Driver Relationship Specialty Start Date End Date Manuel Mendoza MD [address] [place] [address] PCP - General 03/14/21
--- OUTSIDE RECORDS SUMMARY | 2024-08-27 15:53 | XMS_ITS | Encounter Summary ---
Author Organization [facility] Address [address] [place] [address] Care Team Providers Care Mold Shop Supervisor Name Role Phone Manuel Mendoza MD Primary Care Provider [phone] Reason for Visit * Reason Onset Date Comments Case Management 03/27/2016 BOEJOSE HASSAN DO S [id number] Encounter Details Date Type Department Care Team (Late st Contact Info) Description 03/27/2016 Patient Outreach [facility] Outpatient Care Management - [place] [address] [place] [address] Catarino Wyman, [facility] [address] [place] [address] Case Management (ROYAL WAIVER DOS [id number] ) Social History Tobacco Use Types Packs/Day Years Used Date Smoking Tobacco: Never Assessed Comments Unknown Sex and Gender Information Value Date Recorded Sex Assigned at Not on file Legal Sex Female 5:19 PM EMPLOYMENT ADVISOR Gender Identity Not on file Sexual Orientation Not on file documented as of this encounter Plan of Treatment Not on file documented as of this encounter Visit Diagnoses Not on filedocumented in this encounter Care Teams Mold Shop Supervisor Relationship Specialty Start Date End Date Manuel Mendoza MD [address] [facility] [address] [place] [id number] PCP - General Family Practice 08/02/18 documented as of this encounter
--- OUTSIDE RECORDS SUMMARY | 2024-08-27 15:53 | XMS_ITS | Clinical Summary ---
Author Organization [facility] Address [address] [place] [address] Care Team Providers Care Ballet Company Artistic Director Name Role Phone Manuel Mendoza MD Primary Care Provider [phone] Allergies No known active allergies Medications raNITIdine (ZANTAC) 75 mg Tablet Take 75 mg by mouth daily. Active diphenhydrAMINE (BENADRYL) 25 mg tablet Take 12.5 mg by mouth nightly as needed for Allergies. Active fluticasone (FLONASE) 50 mcg/spray [place], Suspension Administer 2 Sprays in each nostril [...] on file Legal Sex Female 5:19 PM BUSINESS INFORMATION CONSULTANT Gender Identity Not on file Sexual Orientation [...] age to complete this topic Care Teams Bal[employer] Company Artistic Director Relationship Specialty Start Date End Date Manuel Mendoza MD [address] [facility] [address] [place] [address] PCP - General Family Practice 08/02/18
--- OUTSIDE RECORDS SUMMARY | 2024-08-27 15:53 | XMS_ITS | Patient Health Summary ---
Author Organization [facility] Address [address] [facility] [place] [address] Care Team Providers Care Paper Feeder Name Role Phone Manuel Mendoza MD Primary Care Provider [phone] Note from [facility],non-owned Affiliates and Associated Physician Practices is amultiple site organization consisting of ambulatory clinics and hospital sitesin [place], [place] and [place]. This disclosure is being madepursuant to the Care Everywhere program and may not contain all information available regarding this patient. Last updated 18.[facility] Allergies No known active allergies Medications * [...] fluticasone propionate (FLONASE) 50 MCG/ACT nasal spray [place] 2 Sprays into each nostril once daily [...] 60 MIN (04/19/2015 10:28 PM CDT) Narrative [facility] - 04/21/2015 8:31 AM CDT No Dictation. Wes MCCOY Performing Organization Address City/State/[facility] Co de Phone Number [facility] [address] [phone] * XR FOREARM 2 VW LEFT (04/19/2015 [...] * XR FINGER(S) RIGHT (06/17/2013 10:46 AM OIL LEASE OPERATOR) Anatomical Region Laterality Modality Wrist / Hand, Upper Extremity Ra diographic Imaging 06/17/2013 10:5 4 AM OIL LEASE OPERATOR Impressions 06/17/2013 11:43 AM OIL LEASE OPERATOR Impression Subtle deformity with periosteal reaction at the distal aspect of the fifth middle phalanx, consistent with healing fracture. D: Nilson Chamorro MD. Arnol Martin, have personally reviewed the images and I agree with this report. Narrative 06/17/2013 11:43 AM OIL LEASE OPERATOR Exam: Right fifth digit, 3 views [...] MD DIAGNOSTIC IMAGING O RDERABLES Care Teams Paper Feeder Relationship Specialty Start Date End Date Manuel Mendoza MD [address] [place] [address] PCP - General 03/14/21
--- OUTSIDE RECORDS SUMMARY | 2024-08-27 15:53 | XMS_ITS | Clinical Summary ---
Author Organization [facility] Address [address] [place] [address] Care Team Providers Care Senior Actuarial Analyst Name Role Phone Manuel Mendoza MD Primary Care Provider [phone] Source Comments [facility],non-owned Affiliates and Associated Physician Practices is amultiple site organization consisting of ambulatory clinics and hospital sitesin [place], [place], [place] and [place]. This disclosure is being madepursuant to the Care Everywhere program and may not contain all information available regarding this patient. Last updated 18.[facility] Allergies No known active allergies Medications * [...] fluticasone propionate (FLONASE) 50 MCG/ACT nasal spray [place] 2 Sprays into each nostril once daily [...] age to complete this topic Care Teams Senior Actuarial Analyst Relationship Specialty Start Date End Date Manuel Mendoza MD [address] [place] [address] PCP - General 03/14/21
== END 2024-08-27 15:49 | disposition home or self-care (01) ==
PROVIDERS: PCP Family Medicine; Visit Provider Obstetrics & Gynecology
DX: R10.2 Pelvic and perineal pain (principal)
CPT/HCPCS: 76856

== ENCOUNTER 2024-09-02 12:21 | Outpatient (CLI) | payer BC, MEDICAID, SELFPAY ==
--- OUTSIDE RECORDS SUMMARY | 2024-09-02 12:24 | XMS_ITS | Clinical Summary ---
Author Organization [facility] Address [address] [facility] [place] [address] Care Team Providers Care Investment Banker Name Role Phone Manuel Mendoza MD Primary Care Provider [phone] Source Comments [facility],non-owned Affiliates and Associated Physician Practices is amultiple site organization consisting of ambulatory clinics and hospital sitesin [place], [place], [place] and [place]. This disclosure is being madepursuant to the Care Everywhere program and may not contain all information available regarding this patient. Last updated 18.[facility] Allergies No known active allergies Medications * [...] fluticasone propionate (FLONASE) 50 MCG/ACT nasal spray [place] 2 Sprays into each nostril once daily [...] age to complete this topic Care Teams Investment Banker Relationship Specialty Start Date End Date Manuel Mendoza MD [address] [place] [address] PCP - General 03/14/21
--- OUTSIDE RECORDS SUMMARY | 2024-09-02 12:24 | XMS_ITS | Encounter Summary ---
Author Organization [facility] Address [address] [place] [address] Care Team Providers Care Director Of Dance Name Role Phone Manuel Mendoza MD Primary Care Provider [phone] Reason for Visit * Reason Onset Date Comments Case Management 03/27/2016 BOEJOSE HASSAN DO S [id number] Encounter Details Date Type Department Care Team (Late st Contact Info) Description 03/27/2016 Patient Outreach [facility] Outpatient Care Management - [place] [address] [place] [address] Catarino Wyman, [facility] [address] [place] [address] Case Management (ROYAL WAIVER DOS [id number] ) Social History Tobacco Use Types Packs/Day Years Used Date Smoking Tobacco: Never Assessed Comments Unknown Sex and Gender Information Value Date Recorded Sex Assigned at Not on file Legal Sex Female 5:19 PM POST TRONIC MACHINE OPERATOR Gender Identity Not on file Sexual Orientation Not on file documented as of this encounter Plan of Treatment Not on file documented as of this encounter Visit Diagnoses Not on filedocumented in this encounter Care Teams Director Of Dance Relationship Specialty Start Date End Date Manuel Mendoza MD [address] [facility] [address] [place] [phone] PCP - General Family Practice 08/02/18 documented as of this encounter
--- OUTSIDE RECORDS SUMMARY | 2024-09-02 12:24 | XMS_ITS | Patient Health Summary ---
Author Organization [facility] [employer] Address [address] [facility] [place] [address] Care Team Providers Care Security Representative Name Role Phone Manuel Mendoza MD Primary Care Provider Note from [facility],non-owned Affiliates and Associated Physician Practices is amultiple site organization consisting of ambulatory clinics and hospital sitesin [place], [place], [place] and [place]. This disclosure is being madepursuant to the Care Everywhere program and may not contain all information available regarding this patient. Last updated 18.[facility] [employer] Allergies No known active allergies Medications * [...] fluticasone propionate (FLONASE) 50 MCG/ACT nasal spray [place] 2 Sprays into each nostril once daily [...] 60 MIN (04/19/2015 10:28 PM CDT) Narrative [facility] - 04/21/2015 8:31 AM CDT No Dictation. Wes MCCOY Performing Organization Address City/State/[facility] Co de Phone Number [facility] [address] [phone] * XR FOREARM 2 VW LEFT (04/19/2015 [...] * XR FINGER(S) RIGHT (06/17/2013 10:46 AM HORIZONTAL RESAW OPERATOR) Anatomical Region Laterality Modality Wrist / Hand, Upper Extremity Ra diographic Imaging 06/17/2013 10:5 4 AM HORIZONTAL RESAW OPERATOR Impressions 06/17/2013 11:43 AM HORIZONTAL RESAW OPERATOR Impression Subtle deformity with periosteal reaction at the distal aspect of the fifth middle phalanx, consistent with healing fracture. D: Nilson Chamorro MD. Arnol Martin, have personally reviewed the images and I agree with this report. Narrative 06/17/2013 11:43 AM HORIZONTAL RESAW OPERATOR Exam: Right fifth digit, 3 views [...] MD DIAGNOSTIC IMAGING O RDERABLES Care Teams Security Representative Relationship Specialty Start Date End Date Manuel Mendoza MD [address] [place] [address] PCP - General 03/14/21
--- OUTSIDE RECORDS SUMMARY | 2024-09-02 12:24 | XMS_ITS | Referral Summary ---
Author Organization [facility] [employer] Address [address] [facility] [place] [address] Care Team Providers Care Tax Advisor Name Role Phone Manuel Mendoza MD Primary Care Provider [phone] Source Comments [facility] [employer],non-owned Affiliates and Associated Physician Practices is amultiple site organization consisting of ambulatory clinics and hospital sitesin [place], [place], [place] and [place]. This disclosure is being madepursuant to the Care Everywhere program and may not contain all information available regarding this patient. Last updated 18.[facility] [employer] Allergies No known active allergies Medications * [...] fluticasone propionate (FLONASE) 50 MCG/ACT nasal spray [place] 2 Sprays into each nostril once daily [...] of Treatment Not on file Care Teams Tax Advisor Relationship Specialty Start Date End Date Manuel Mendoza MD [address] [place] [address] PCP - General 03/14/21
--- OUTSIDE RECORDS SUMMARY | 2024-09-02 12:24 | XMS_ITS | Clinical Summary ---
Author Organization [facility] Administrative Offices Address [address] [place] [address] Care Team Providers Care Manager Document Name Role Phone Manuel Mendoza MD Primary Care Provider [phone] Allergies No known active allergies Medications raNITIdine (ZANTAC) 75 mg Tablet Take 75 mg by mouth daily. Active diphenhydrAMINE (BENADRYL) 25 mg tablet Take 12.5 mg by mouth nightly as needed for Allergies. 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 [address] [place] [address] PCP - General Family Practice 08/02/18
[2024-09-02 12:46] LABS: Basophils Absolute Auto 0.1 K/mm3 (0.0-0.1); Basophils Percent Auto 0.6 % (0.2-1.2); Eosinophils Absolute Auto 0.1 K/mm3 (0-0.3); Eosinophils Percent Auto 1.4 % (0-4.4); Hematocrit 38.8 % (37.0-47.0); Hemoglobin 12.4 g/dL (12.0-15.0); Immature Granulocyte Absolute 0.02 K/mm3 (0.00-0.031); Immature Granulocyte Percent A 0.2 % (0-0.5); Lymphocytes Percent Auto 22.2 % (18.3-44.2); Mean Corpuscular Hemoglobin 28.1 pg (26-34); Mean Platelet Volume 10.4 fl (7.4-10.4); Monocytes Absolute Auto 0.6 K/mm3 (0.1-0.6); Monocytes Percent Auto 7.6 % (2.6-8.5); Neutrophils Absolute Auto 5.5 K/mm3 (1.3-6.7); Platelet Count Result 262 k/mm3 (150-375); Red Blood Count 4.41 M/mm3 (4.2-5.4); Red Cell Distribution Width 15.4 % (11.5-14.5); White Blood Count 8.1 K/mm3 (4.5-10.0)
[2024-09-02 12:51] LABS: Add Urine Microscopic? NO; Appearance Urine Clear (Clear); Bilirubin Urine Negative (Negative); Blood Urine Negative (Negative); Color Urine Yellow (Yellow); Glucose Urine UA Negative (Negative); Ketones Urine Negative (Negative); Leukocyte Esterase Ur Negative LEU/UL (Negative); Nitrate Urine Negative (Negative); Protein Urine Negative (Negative); Specific Grav Ur 1.009 (1.001-1.035); Urobilinogen Urine 0.2 mg/dL (<2.0)
[2024-09-02 12:55] LABS: Iron 100 ug/dL (37-170)
[2024-09-02 12:57] LABS: Alanine Aminotransferase 11 U/L (6-35); Albumin Level 4.7 g/dL (3.5-5.1); Alkaline Phosphatase 63 U/L (38-126); Anion Gap 10 mmol/L (4-12); Aspartate Amino Transferase 19 U/L (14-36); Bilirubin,Total 0.7 mg/dL (0.2-1.3); Blood Urea Nitrogen 9 mg/dL (7-17); Calcium 9.7 mg/dL (8.4-10.2); Carbon Dioxide 25 mmol/L (22-30); Chloride 103 mmol/L (98-107); Estimated Glomerular Filt Rate > 60; Glucose 89 mg/dL (65-110); Potassium 3.8 mmol/L (3.4-5.0); Sodium 138 mmol/L (137-145)
[2024-09-02 13:05] LABS: Percent Iron Saturation 27 % (20-50)
[2024-09-02 13:13] LABS: Free T4 Free Thyroxine 0.95 ng/dL (0.78-2.19)
== END 2024-09-02 12:22 | disposition home or self-care (01) ==
LOC: ANHLAB 12:22
PROVIDERS: PCP Family Medicine; Visit Provider Physician Assistant
DX: R10.9 Unspecified abdominal pain (principal); R32 Unspecified urinary incontinence; E07.9 Disorder of thyroid, unspecified; E53.8 Deficiency of other specified B group vitamins; R53.83 Other fatigue
CPT/HCPCS: 36415; 80053; 81003; 82607; 83540; 83550; 84439; 84443; 85025

== ENCOUNTER 2025-03-26 11:15 | Emergency (ER) | payer BC, MEDICAID, SELFPAY ==
[2025-03-26 11:29] VITALS: BP 111/80; PULSE 98; RESP 16; TEMP 36.3; O2SAT 100
--- NOTE | 2025-03-26 11:39 | ED.EYEPROB ---
HPI - Eye Problem General Chief complaint: Eye Problems Stated complaint: PAIN IN BACK OF NECK TO L EYE Time Seen by Provider: 03/26/25 11:35 Source: patient Mode of arrival: ambulatory Limitations: no limitations History of Present Illness HPI Narrative: Devin is a 24-year-old female patient presenting to the clinic today with complaints of left-sided neck pain, headache, dizziness, nausea, and vomiting since 10:00 last night. She denies any known injury or manipulation to her neck. States she gets these symptoms frequently and has seen her PCP and had workup in the ER for than prior. Reason why she came in today is because it is lasting longer than what it normally does. Has had x-ray, ct scans, and blood workup never shows anything per patient. States she does have a history of scoliosis. Has smoke some THC to help alleviate her in nausea/vomiting. Has not taken any other medications to treat her symptoms. No history of migraine headaches or ocular migraines. Rates pain 5/10 currently Related Data Home Medications ?Medication ?Instructions ?Recorded ?Confirmed ?Last Taken ?Type multivitamin 1 tablet PO DAILY 03/24/25 03/26/25 Unknown History Allergies Allergy/AdvReac Type Severity Reaction Status Date / Time cephalexin AdvReac Severe Vomiting Verified 03/26/25 11:29 Review of Systems Review of Systems: Pertinent positives per HPI. Patient denies any fever, chills, rash, visual changes, cough, runny nose, sore throat, shortness of breath, chest pain, palpitations, diarrhea, constipation, abdominal pain, or any urinary issues. [facility] Past Medical History Medical History Lightheadedness Vaginal discharge Normal endoscopy Encounter for screening colonoscopy for [id number] patient Borderline personality disorder PTSD (post-traumatic stress disorder) Irritable bowel syndrome with diarrhea Abdominal pain Nausea and vomiting Anxiety GERD (gastroesophageal reflux disease) Asthma Headache Pharyngitis Acute tonsillitis Chronic tonsillitis Depression Acute pain of both ears Surgical History Surgical History History of hysteroscopy (07/31/24) suction D&C missed AB Hx of hemorrhoidectomy REUA, exc thrombosed external hemorrhoid on 08/03/23 H/O laparoscopy Family History Family History Other Diabetes mellitus Family history of arthritis Family history of cardiovascular disease Family history of malignant neoplasm Social History Social History (Updated 03/24/25 @ 14:18 by EDEN Jovel) Smoking status: Never smoker Second hand tobacco smoke exposure: Yes ([employer]) Alcohol intake: never Substance use: current Substance use type: marijuana Other substance usage details: For anxiety every once in awhile Do You Feel Safe in your Home?: Yes Lack of Transportation: No Lack of Food: Never True Current Housing: I Have Housing Concerned About Future Housing: No Difficulty Paying Gas/Electric Bills: No Difficulty Paying for Meds: No Currently Unemployed: No Education: Decline to Answer Difficulty w/ Childcare or Family Care: No Living arrangements: with family Additional living arrangements comments: single Occupation/Education: other 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 There is no relevant family history pertinent to the patient complaint. Exam Narrative: General: Well-developed, well nourished, in no apparent distress Head: Normocephalic, atraumatic, symmetrical smile and wrinkling of forehead Eyes: Pupils equally round and reactive to light bilaterally, EOM intact, sclera and conjunctive clear, no discharge, lids normal, no nystagmus Ears: TMs intact and clear, ear canals clear, no drainage, grossly hearing normal. Nose: Nares patent, no discharge, no inflammation, no sinus tenderness. Mouth: Oropharynx without lesions or masses, good dentition, MMM. Tongue midline, even rise and fall of uvula Neck: Supple, trachea midline, no enlargement of anterior or posterior cervical nodes, no thyroid masses or goiter palpable. Cardio: Regular rate and rhythm, s1 and s2 normal, no murmur appreciated. Resp: Clear to auscultation bilaterally anteriorly and posteriorly, no rhonchi, rales, wheezing or rubs Musculoskeletal: No deformity, tenderness over the left posterior lateral cervical trapezius musculature, pain with turning her neck to the right against resistance, pain with raising the left arm over the left trapezius musculature, grossly normal range of motion, muscle strength strong and equal, peripheral pulse strong, no edema, no cyanosis, normal gait and station Neuro: Alert and oriented x4 with normal speech, no focal deficits, cranial nerves I through XII intact, muscle strength 5 out of 5, sensation intact bilaterally. Course Course Emergency Course: Portions of this record may have been created with voice recognition software. Level of Care: Express Care Visit Vital Signs Vital signs: Vital Signs Temperature 36.3 C L 03/26/25 11:29 Pulse Rate 98 03/26/25 11:29 Respiratory Rate 16 03/26/25 11:29 Blood Pressure 111/80 03/26/25 11:29 Pulse Oximetry 100 03/26/25 11:29 Temperature 36.3 C L 03/26/25 11:29 Pulse Rate 98 03/26/25 11:29 Respiratory Rate 16 03/26/25 11:29 Blood Pressure 111/80 03/26/25 11:29 Pulse Oximetry 100 03/26/25 11:29 Vital signs reviewed MDM - Eye Problem MDM Narrative Medical decision making narrative: At the time of visit patient is resting comfortably on the exam table. Patient appears to be nontoxic. Complaints of left-sided neck pain, headache, dizziness, nausea, and vomiting since 10:00 last night. She denies any known injury or manipulation to her neck. States she gets these symptoms frequently and has seen her PCP and had workup in the ER for than prior. Reason why she came in today is because it is lasting longer than what it normally does. Has had x-ray, ct scans, and blood workup never shows anything per patient. States she does have a history of scoliosis. Has smoke some THC to help alleviate her in nausea/vomiting. Has not taken any other medications to treat her symptoms. On exam patient has tenderness over the left posterior lateral cervical trapezius musculature, pain with turning her neck to the right against resistance, pain with raising the left arm over the left trapezius musculature, neuro exam is negative, no URI symptoms. Plan: I suspect patient has vertigo, posterior lateral cervical strain, and acute/nausea vomiting. Prescription for baclofen, ondansetron, and naproxen. Supportive measures were discussed with the patient and they voiced understanding discharge instructions and agrees to treatment plan. Return precautions reviewed Differential Diagnosis Differential diagnosis: Likely other (Vertigo, otitis media, eustachian tube dysfunction, cervical strain, acute neck pain, vestibular dysfunction, migraine) Discharge Plan Discharge Clinical Impression: Vertigo Posterolateral cervical muscle strain Qualifiers: Encounter type: initial encounter Qualified Code(s): S16.1XXA - Strain of muscle, fascia and tendon at neck level, initial encounter Nausea & vomiting Qualifiers: Vomiting type: unspecified Qualified Code(s): R11.2 - Nausea with vomiting, unspecified Patient Disposition: Home Condition: Stable Instructions: Antibiotic Form, Cervical Strain (ED), Acute Nausea and Vomiting (ED), Dizziness (ED) Additional Instructions: Neuro exam is normal in the clinic today. I suspect you have vertigo, posterior lateral cervical strain, and acute nausea/vomiting. Take any prescription medication only as prescribed-naproxen and baclofen Be mindful of sedation precautions given to you if taking a muscle relaxer. May use heat or ice to the affected area Consider massage or chiropractor adjustment if this was discussed with provider May use blue emu, lidocaine patches, or asper cream to affected area- do not apply heat or ice directly over cream- can cause burn. Complete appropriate neck stretching exercises. Follow up with your PCP in 3-5 days if symptom persist. Go to the emergency room if symptoms worsen Patient Language: Georgian Prescriptions: New naproxen 500 mg tablet 500 mg PO BID PRN (Reason: pain) 7 Days Qty: 14 0RF baclofen 10 mg tablet 10 mg PO TID PRN (Reason: muscle spasm) 7 Days Qty: 21 0RF ondansetron 4 mg tablet,disintegrating 4 mg PO Q8H 3 Days Qty: 10 0RF No Action multivitamin Tablet 1 tablet PO DAILY drospirenone-ethinyl estradiol [ALBERTA (28)] 3-0.02 mg tablet 1 tablet PO DAILY Qty: 112 3RF Rx Instructions: take 1 tablet by mouth daily in continuous manner skipping ay placebo pills Follow-up/Referrals: Manuel Mendoza MD [Primary Care Provider, [facility]] Time of Disposition: 11:43 Quality NIHSS Nursing Documentation ED NIHSS nursing documentation: reviewed/agree
== END 2025-03-26 11:51 | disposition home or self-care (01) ==
PROVIDERS: Emergency Provider Nurse Practitioner Family; PCP Family Medicine
DX: R42 Dizziness and giddiness (principal); S16.1XXA Strain of muscle, fascia and tendon at neck level, initial encounter; X58.XXXA Exposure to other specified factors, initial encounter; R11.2 Nausea with vomiting, unspecified; K21.9 Gastro-esophageal reflux disease without esophagitis; J45.909 Unspecified asthma, uncomplicated
CPT/HCPCS: 99213; G0463